=== PATIENT | male | born 1970 | race Caucasian/White ===

== ENCOUNTER 2021-07-05 05:23 | Inpatient (IN) | payer BC ==
[2021-07-05] MEDS ORDERED: SODIUM CHLORIDE 0.9% 1,000 ML IV STA ×2 (06:35→07:15)
[2021-07-05] MEDS ORDERED: AMPICILLIN-SULBACTAM 3 GM in SODIUM CHLORIDE 0.9% 100 ML IVPB STA (06:44)
--- NOTE | 2021-07-05 06:47 | ED ---
General Adult HPI - General Chief complaint: Skin/Abscess/Foreign Body Stated complaint: Cyst on groin, wants to check blood sugar Time Seen by Provider: 07/05/21 06:08 Source: patient, RN notes reviewed Mode of arrival: ambulatory Limitations: no limitations - History of Present Illness Initial comments: 51-year-old male presents to the emergency room for a chief complaint of groin pain. Patient states between his groin and buttock he is having pain and swelling. States he has been ongoing for the past 2 days now but seems to be getting worse instead of better. He has not had fevers. Patient is unsure of his past medical history given he has not had blood work done in years. Denies history of being a diabetic. Denies anything similar happening in the past.Patient has no other complaints at this time including shortness of breath, chest pain, abdominal pain, nausea or vomiting, headache, or visual changes. - Related Data Allergies Allergy/AdvReac Type Severity Reaction Status Date / Time No Known Allergies Allergy Verified 07/05/21 05:27 Review of Systems ROS Statement: Those systems with pertinent positive or pertinent negative responses have been documented in the HPI. ROS Other: All systems not noted in ROS Statement are negative. Past Medical History Past Medical History: No Reported History History of Any Multi-Drug Resistant Organisms: None Reported Past Surgical History: Orthopedic Surgery Additional Past Surgical History / Comment(s): left elbow Past Psychological History: No Psychological Hx Reported Smoking Status: Never smoker Past Alcohol Use History: Rare Past Drug Use History: None Reported General Exam Limitations: no limitations General appearance: alert, in no apparent distress Head exam: Present: atraumatic Eye exam: Present: normal appearance, PERRL, EOMI. Absent: scleral icterus, conjunctival injection ENT exam: Present: normal exam, mucous membranes moist Neck exam: Present: normal inspection, full ROM. Absent: tenderness Respiratory exam: Present: normal lung sounds bilaterally. Absent: respiratory distress, wheezes Cardiovascular Exam: Present: regular rate, normal rhythm, normal heart sounds GI/Abdominal exam: Present: soft, normal bowel sounds. Absent: distended, tenderness External exam: Present: erythema (erythema and edema to the right buttock/perineum) Course Vital Signs 07/05/21 07/05/21 05:27 08:12 Temperature 97.2 F L 98.0 F Pulse Rate 109 H 99 Respiratory 18 16 Rate Blood Pressure 134/87 129/86 O2 Sat by Pulse 97 96 Oximetry Medical Decision Making - Medical Decision Making vitals are stable. Patient is afebrile. Patient does have some erythema extending from the right perineum to the anterior buttock with some induration and edema. He does show leukocytosis of 21.3 with a left shift. CMP does show hyperglycemia. CRP 31.9. ET pelvis does show inspiratory change in the region of the right groin extending into the medial buttock there is no evidence for drainable collection. No air noted. Chest was discussed with Dr. Henry as patient has an appointment to see him coming up. He does request that my attending Dr. Wills look at the area and talked to Dr. Nieves to make sure he is okay to stay here. Dr. Wills did evaluate patient in at this time appears to be a cellulitis. Discussed with Dr. Nieves lab findings and CAT scan image. Agreeable to consult thing and patient in this hospital. Dr. Galaviz spoke with Dr. Henry who does accept admission. - Lab Data Result diagrams: 07/05/21 06:37 07/05/21 06:37 Lab Results 07/05/21 07/05/21 07/05/21 Range/Units 06:37 06:37 06:37 WBC 21.3 H (3.8-10.6) k/uL RBC 4.87 (4.30-5.90) m/uL Hgb 14.2 (13.0-17.5) gm/dL Hct 44.2 (39.0-53.0) % MCV 90.9 (80.0-100.0) fL MCH 29.2 (25.0-35.0) pg MCHC 32.1 (31.0-37.0) g/dL RDW 12.2 (11.5-15.5) % Plt Count 467 H (150-450) k/uL MPV 8.4 Neutrophils % 84 % Lymphocytes % 8 % Monocytes % 6 % Eosinophils % 1 % Basophils % 1 % Neutrophils # 17.8 H (1.3-7.7) k/uL Lymphocytes # 1.8 (1.0-4.8) k/uL Monocytes # 1.2 H (0-1.0) k/uL Eosinophils # 0.2 (0-0.7) k/uL Basophils # 0.1 (0-0.2) k/uL PT 11.3 (9.0-12.0) sec INR 1.1 (<1.2) APTT 27.1 (22.0-30.0) sec Sodium 130 L (137-145) mmol/L Potassium 4.4 (3.5-5.1) mmol/L Chloride 97 L (98-107) mmol/L Carbon Dioxide 13 L (22-30) mmol/L Anion Gap 20 mmol/L BUN 11 (9-20) mg/dL Creatinine 0.77 (0.66-1.25) mg/dL Est GFR (CKD-EPI)AfAm >90 (>60 ml/min/1.73 sqM) Est GFR (CKD-EPI)NonAf >90 (>60 ml/min/1.73 sqM) Glucose 343 H (74-99) mg/dL Plasma Lactic Acid Charles (0.7-2.0) mmol/L Calcium 9.1 (8.4-10.2) mg/dL Total Bilirubin 1.1 (0.2-1.3) mg/dL AST 22 (17-59) U/L ALT 23 (4-49) U/L Alkaline Phosphatase 103 (38-126) U/L C-Reactive Protein 31.9 H (<1.0) mg/dL Total Protein 7.2 (6.3-8.2) g/dL Albumin 4.3 (3.5-5.0) g/dL 07/05/21 Range/Units 06:37 WBC (3.8-10.6) k/uL RBC (4.30-5.90) m/uL Hgb (13.0-17.5) gm/dL Hct (39.0-53.0) % MCV (80.0-100.0) fL MCH (25.0-35.0) pg MCHC (31.0-37.0) g/dL RDW (11.5-15.5) % Plt Count (150-450) k/uL MPV Neutrophils % % Lymphocytes % % Monocytes % % Eosinophils % % Basophils % % Neutrophils # (1.3-7.7) k/uL Lymphocytes # (1.0-4.8) k/uL Monocytes # (0-1.0) k/uL Eosinophils # (0-0.7) k/uL Basophils # (0-0.2) k/uL PT (9.0-12.0) sec INR (<1.2) APTT (22.0-30.0) sec Sodium (137-145) mmol/L Potassium (3.5-5.1) mmol/L Chloride (98-107) mmol/L Carbon Dioxide (22-30) mmol/L Anion Gap mmol/L BUN (9-20) mg/dL Creatinine (0.66-1.25) mg/dL Est GFR (CKD-EPI)AfAm (>60 ml/min/1.73 sqM) Est GFR (CKD-EPI)NonAf (>60 ml/min/1.73 sqM) Glucose (74-99) mg/dL Plasma Lactic Acid Charles 1.1 (0.7-2.0) mmol/L Calcium (8.4-10.2) mg/dL Total Bilirubin (0.2-1.3) mg/dL AST (17-59) U/L ALT (4-49) U/L Alkaline Phosphatase (38-126) U/L C-Reactive Protein (<1.0) mg/dL Total Protein (6.3-8.2) g/dL Albumin (3.5-5.0) g/dL Disposition Clinical Impression: Leukocytosis, Cellulitis, Elevated C-reactive protein (CRP), Hypoglycemia Disposition: ADMITTED IP TO THIS HOSP Is patient prescribed a controlled substance at d/c from ED?: No Referrals: Irma Henry MD [Primary Care Provider] - 1-2 days Time of Disposition: 09:03
[2021-07-05 07:07] LABS: Basophils # (A) 0.1 k/uL (0-0.2); Basophils % (A) 1 %; Eosinophils # (A) 0.2 k/uL (0-0.7); Eosinophils % (A) 1 %; HCT 44.2 % (39.0-53.0); HGB 14.2 gm/dL (13.0-17.5); Lymphocytes # (A) 1.8 k/uL (1.0-4.8); Lymphocytes % (A) 8 %; MCH 29.2 pg (25.0-35.0); MCHC 32.1 g/dL (31.0-37.0); MCV 90.9 fL (80.0-100.0); Mean Platelet Volume 8.4; Monocytes # (A) 1.2 k/uL (0-1.0); Monocytes % (A) 6 %; Neutrophils # (A) 17.8 k/uL (1.3-7.7); Neutrophils % (A) 84 %; Platelet Count 467 k/uL (150-450); RBC 4.87 m/uL (4.30-5.90); RDW 12.2 % (11.5-15.5); WBC 21.3 k/uL (3.8-10.6)
[2021-07-05 07:15] LABS: INR 1.1 (<1.2); Partial Thromboplastin Time 27.1 sec (22.0-30.0); Prothrombin Time 11.3 sec (9.0-12.0)
[2021-07-05 07:21] LABS: ALT 23 U/L (4-49); AST 22 U/L (17-59); African American GFR (CKD) >90 (>60 ml/min/1.73 sqM); Albumin 4.3 g/dL (3.5-5.0); Alkaline Phosphatase 103 U/L (38-126); Anion Gap 20 mmol/L; Blood Urea Nitrogen 11 mg/dL (9-20); Calcium 9.1 mg/dL (8.4-10.2); Carbon Dioxide 13 mmol/L (22-30); Chloride 97 mmol/L (98-107); Glucose 343 mg/dL (74-99); Non-African American GFR(CKD) >90 (>60 ml/min/1.73 sqM); Potassium 4.4 mmol/L (3.5-5.1); Sodium 130 mmol/L (137-145); Total Bilirubin 1.1 mg/dL (0.2-1.3); Total Protein 7.2 g/dL (6.3-8.2)
[2021-07-05 08:04] LABS: C Reactive Protein 31.9 mg/dL (<1.0)
--- NOTE | 2021-07-05 08:13 | CT ---
EXAMINATION TYPE: CT pelvis w con DATE OF EXAM: 07/05/2021 COMPARISON: None HISTORY: Rt Groin Abscess CT DLP: 1033.6 mGycm Automated exposure control for dose reduction was used. CONTRAST: Performed with IV Contrast, patient injected with 100 mL of Isovue 300. Contrast-enhanced CT of the p millicent was performed. FINDINGS: There is inflammatory change in the region of the right groin extending into the medial buttock. Ther e is no evidence for drainable collection. Several subcentimeter right inguinal lymph nodes are noted . No additional inflammatory changes appreciated. No evidence for pelvic mass or free fluid. Urinary bl adder and prostate gland are unremarkable. Lower poles of the kidneys, visualized portions of the lucio er and spleen are grossly unremarkable. Abdominal aorta is of normal caliber. Mild atheromatous deleon e seen. Mild degenerative change lumbar spine. IMPRESSION: There is inflammatory change in the region of the right groin extending into the medial buttock. Ther e is no evidence for drainable collection.
[2021-07-05] MEDS ORDERED: CLINDAMYCIN 600 MG in DEXTROSE 5% IN WATER 50 ML IVPB STA ×2 (08:29)
[2021-07-05] MEDS ORDERED: VANCOMYCIN IV PER PHARMACY 1 EACH MISC MISCELLANE PRN (08:30)
[2021-07-05] MEDS ORDERED: VANCOMYCIN 1,750 MG in SODIUM CHLORIDE 0.9% 500 ML 500 ML IVPB STA (08:37)
[2021-07-05] MEDS ORDERED: NALOXONE 0.4 MG/ML 1 ML VIAL IV PRN (09:03)
[2021-07-05] MEDS ORDERED: ONDANSETRON 4 MG/2 ML VIAL IVP PRN (09:03)
[2021-07-05 09:28] LABS: Erythrocyte Sedimentation Rate 49 mm/hr (0-15)
[2021-07-05] MEDS: SODIUM CHLORIDE 0.9% 1,000 ML IV SCH ×2 (09:36→16:11)
[2021-07-05 11:35] LABS: Glucose,Whole Blood 251 mg/dL (75-99)
[2021-07-05 12:09] LABS: Appearance,Urine Clear (Clear); Bilirubin,Urine Negative (Negative); Blood,Urine Negative (Negative); Color,Urine Light Yellow; Glucose,Urine (UA) 4+ (Negative); Leukocyte Esterase,Urine Negative (Negative); Nitrite,Urine Negative (Negative); PH, Urine 5.5 (5.0-8.0); Protein,Urine Trace (Negative); Specific Gravity,Urine 1.038 (1.001-1.035); Urobilinogen,Urine <2.0 mg/dL (<2.0)
[2021-07-05] MEDS: INSULIN ASPART (NovoLOG) 100 UNIT/ML VIAL SQ SCH ×3 (12:39→21:17)
[2021-07-05 12:51] LABS: Ketones,Urine 4+ (Negative)
--- NOTE | 2021-07-05 13:29 | P.GSCN ---
History of Present Illness Consult date: 07/05/21 Reason for Consult: Cellulitis right groin History of present illness: This 51-year-old male who developed pain in his right groin last couple days. Patient sees Alexis without evidence of cellulitis extends from his right groin into the medial buttock. His CAT scan shows no evidence of any abscess. The patient states he has no significant pain well sitting in stretcher however when he moves he does feel some discomfort. Past Medical History Past Medical History: No Reported History History of Any Multi-Drug Resistant Organisms: None Reported Past Surgical History: Orthopedic Surgery Additional Past Surgical History / Comment(s): left elbow Past Psychological History: No Psychological Hx Reported Smoking Status: Never smoker Past Alcohol Use History: Rare Past Drug Use History: None Reported Medications and Allergies Home Medications Medication Instructions Recorded Confirmed Type Multivit-Min/Folic/Vit K/Lycop 1 tab PO DAILY 07/05/21 07/05/21 History [Men's Multivitamin Tablet] Allergies Allergy/AdvReac Type Severity Reaction Status Date / Time No Known Allergies Allergy Verified 07/05/21 09:15 Surgical - Exam Vital Signs Temp Pulse Resp BP Pulse Ox 97.2 F L 109 H 18 134/87 97 07/05/21 05:27 07/05/21 05:27 07/05/21 05:27 07/05/21 05:27 07/05/21 05:27 - General well developed, well nourished, no distress - Eyes PERRL - ENT normal pinna - Neck no masses - Respiratory normal expansion - Cardiovascular Rhythm: regular - Abdomen Abdomen: soft, non tender - Integumentary Induration and swelling of the right groin which extends towards the right buttock. There is no evidence of any fluctuant mass suggestive of an abscess. Results - Labs 07/05/21 06:37 07/05/21 06:37 Abnormal Lab Results - Last 24 Hours (Table) 07/05/21 07/05/21 07/05/21 Range/Units 06:37 06:37 08:29 WBC 21.3 H (3.8-10.6) k/uL Plt Count 467 H (150-450) k/uL Neutrophils # 17.8 H (1.3-7.7) k/uL Monocytes # 1.2 H (0-1.0) k/uL ESR 49 H (0-15) mm/hr Sodium 130 L (137-145) mmol/L Chloride 97 L (98-107) mmol/L Carbon Dioxide 13 L (22-30) mmol/L Glucose 343 H (74-99) mg/dL POC Glucose (mg/dL) (75-99) mg/dL C-Reactive Protein 31.9 H (<1.0) mg/dL Ur Specific [place] 1.038 H (1.001-1.035) Urine Protein Trace H (Negative) Urine Glucose (UA) 4+ H (Negative) Urine Ketones 4+ H (Negative) 07/05/21 Range/Units 11:33 WBC (3.8-10.6) k/uL Plt Count (150-450) k/uL Neutrophils # (1.3-7.7) k/uL Monocytes # (0-1.0) k/uL ESR (0-15) mm/hr Sodium (137-145) mmol/L Chloride (98-107) mmol/L Carbon Dioxide (22-30) mmol/L Glucose (74-99) mg/dL POC Glucose (mg/dL) 251 H (75-99) mg/dL C-Reactive Protein (<1.0) mg/dL Ur Specific [place] (1.001-1.035) Urine Protein (Negative) Urine Glucose (UA) (Negative) Urine Ketones (Negative) Diabetes panel 07/05/21 Range/Units 06:37 Sodium 130 L (137-145) mmol/L Potassium 4.4 (3.5-5.1) mmol/L Chloride 97 L (98-107) mmol/L Carbon Dioxide 13 L (22-30) mmol/L BUN 11 (9-20) mg/dL Creatinine 0.77 (0.66-1.25) mg/dL Glucose 343 H (74-99) mg/dL Calcium 9.1 (8.4-10.2) mg/dL AST 22 (17-59) U/L ALT 23 (4-49) U/L Alkaline Phosphatase 103 (38-126) U/L Total Protein 7.2 (6.3-8.2) g/dL Albumin 4.3 (3.5-5.0) g/dL Calcium panel 07/05/21 Range/Units 06:37 Calcium 9.1 (8.4-10.2) mg/dL Albumin 4.3 (3.5-5.0) g/dL Pituitary panel 07/05/21 Range/Units 06:37 Sodium 130 L (137-145) mmol/L Potassium 4.4 (3.5-5.1) mmol/L Chloride 97 L (98-107) mmol/L Carbon Dioxide 13 L (22-30) mmol/L BUN 11 (9-20) mg/dL Creatinine 0.77 (0.66-1.25) mg/dL Glucose 343 H (74-99) mg/dL Calcium 9.1 (8.4-10.2) mg/dL Adrenal panel 07/05/21 Range/Units 06:37 Sodium 130 L (137-145) mmol/L Potassium 4.4 (3.5-5.1) mmol/L Chloride 97 L (98-107) mmol/L Carbon Dioxide 13 L (22-30) mmol/L BUN 11 (9-20) mg/dL Creatinine 0.77 (0.66-1.25) mg/dL Glucose 343 H (74-99) mg/dL Calcium 9.1 (8.4-10.2) mg/dL Total Bilirubin 1.1 (0.2-1.3) mg/dL AST 22 (17-59) U/L ALT 23 (4-49) U/L Alkaline Phosphatase 103 (38-126) U/L Total Protein 7.2 (6.3-8.2) g/dL Albumin 4.3 (3.5-5.0) g/dL Assessment and Plan Assessment: Right groin synovitis. Patient continue to receive IV antibiotics. We will follow with you.
[2021-07-05] MEDS ORDERED: PIPERACILLIN-TAZOBACTAM 3.375 GM in SODIUM CHLORIDE 0.9% 100 ML IVPB SCH (16:00)
[2021-07-05] MEDS: HEPARIN SODIUM,PORCINE/PF 5,000 UNIT/0.5 ML SYRINGE SQ SCH ×2 (16:10→23:43)
[2021-07-05 17:02] LABS: Glucose,Whole Blood 267 mg/dL (75-99)
[2021-07-05] MEDS: VANCOMYCIN 1,750 MG in SODIUM CHLORIDE 0.9% 500 ML 500 ML IVPB SCH (17:52)
[2021-07-05 20:48] LABS: Glucose,Whole Blood 346 mg/dL (75-99)
[2021-07-05] MEDS: ACETAMINOPHEN TAB 325 MG TAB PO PRN (21:58)
--- NOTE | 2021-07-05 23:11 | P.HPIM ---
History of Present Illness H&P Date: 07/05/21 Past Medical History Past Medical History: No Reported History History of Any Multi-Drug Resistant Organisms: None Reported Past Surgical History: Orthopedic Surgery Additional Past Surgical History / Comment(s): left elbow Past Psychological History: No Psychological Hx Reported Smoking Status: Never smoker Past Alcohol Use History: Rare Past Drug Use History: None Reported - Past Family History Mother Family Medical History: Diabetes Mellitus Additional Family Medical History / Comment(s): Fatty tissue Father Additional Family Medical History / Comment(s): hypotension Medications and Allergies Home Medications Medication Instructions Recorded Confirmed Type Multivit-Min/Folic/Vit K/Lycop 1 tab PO DAILY 07/05/21 07/05/21 History [Men's Multivitamin Tablet] Allergies Allergy/AdvReac Type Severity Reaction Status Date / Time No Known Allergies Allergy Verified 07/05/21 09:15 Physical Exam Vitals: Vital Signs Temp Pulse Resp BP Pulse Ox 07/05/21 08:12 98.0 F 99 16 129/86 96 07/05/21 05:27 97.2 F L 109 H 18 134/87 97 Intake and Output 07/04/21 07/05/21 07/05/21 22:59 06:59 14:59 Other: Weight 113.398 kg Results CBC & Chem 7: 07/06/21 06:54 07/06/21 06:44 Labs: Abnormal Lab Results - Last 24 Hours (Table) 07/05/21 07/05/21 07/05/21 Range/Units 06:37 06:37 11:33 WBC 21.3 H (3.8-10.6) k/uL Plt Count 467 H (150-450) k/uL Neutrophils # 17.8 H (1.3-7.7) k/uL Monocytes # 1.2 H (0-1.0) k/uL ESR 49 H (0-15) mm/hr Sodium 130 L (137-145) mmol/L Chloride 97 L (98-107) mmol/L Carbon Dioxide 13 L (22-30) mmol/L Glucose 343 H (74-99) mg/dL POC Glucose (mg/dL) 251 H (75-99) mg/dL C-Reactive Protein 31.9 H (<1.0) mg/dL Assessment and Plan Assessment: Right groin abscess and cellulitis. No drainable abscess as per CT. Sepsis secondary to above Newly diagnosed diabetes type 2 A1c 13.5 DVT prophylaxis Plan: Patient will be continued on antibiotics tomorrow Unasyn and vancomycin. Continue with IV hydration and follow-up culture reports. General surgery is following for possible I&D.
[2021-07-05] MEDS: AMPICILLIN-SULBACTAM 3 GM in SODIUM CHLORIDE 0.9% 100 ML IVPB SCH (23:43)
[2021-07-05] MEDS: INSULIN DETEMIR (LEVEMIR) 100 UNIT/ML SYR SQ SCH (23:43)
[2021-07-06] MEDS: VANCOMYCIN 1,750 MG in SODIUM CHLORIDE 0.9% 500 ML 500 ML IVPB SCH ×3 (01:20→18:24)
[2021-07-06] MEDS: SODIUM CHLORIDE 0.9% 1,000 ML IV SCH ×3 (02:08→21:39)
[2021-07-06] MEDS: AMPICILLIN-SULBACTAM 3 GM in SODIUM CHLORIDE 0.9% 100 ML IVPB SCH ×4 (05:26→23:41)
[2021-07-06 07:56] LABS: Glucose,Whole Blood 202 mg/dL (75-99)
[2021-07-06 08:46] LABS: Basophils # (A) 0.08 X 10*3/uL (0.00-0.10); Basophils % (A) 0.5 %; Eosinophils % (A) 1.3 %; HCT 35.6 % (39.6-50.0); HGB 11.9 g/dL (13.0-17.0); Lymphocytes # (A) 1.84 X 10*3/uL (0.90-5.00); Lymphocytes % (A) 11.7 %; MCH 29.3 pg (27.0-32.0); MCHC 33.4 g/dL (32.0-37.0); MCV 87.7 fL (80.0-97.0); Mean Platelet Volume 10.9 fL (9.5-12.2); Monocytes # (A) 1.41 X 10*3/uL (0.20-1.00); Neutrophils # (A) 12.04 X 10*3/uL (1.80-7.70); Neutrophils % (A) 76.6 %; Platelet Count 451 X 10*3/uL (140-440); RBC 4.06 X 10*6/uL (4.40-5.60); RDW 12.2 % (11.5-14.5); WBC 15.71 X 10*3/uL (4.50-10.00)
[2021-07-06] MEDS: INSULIN ASPART (NovoLOG) 100 UNIT/ML VIAL SQ SCH ×4 (08:48→21:36)
[2021-07-06] MEDS: HEPARIN SODIUM,PORCINE/PF 5,000 UNIT/0.5 ML SYRINGE SQ SCH ×3 (08:49→23:42)
[2021-07-06] MEDS: ACETAMINOPHEN TAB 325 MG TAB PO PRN ×2 (08:57→18:31)
[2021-07-06 09:10] LABS: African American GFR (CKD) 129.6 (60.0-200.0); Anion Gap 12.3 mmol/L (10.00-18.00); BUN/Creat Ratio 11.47 Ratio (12.00-20.00); Blood Urea Nitrogen 7.6 mg/dL (9.0-27.0); Calcium 8.3 mg/dL (8.7-10.3); Carbon Dioxide 17.6 mmol/L (20.0-27.5); Non-African American GFR(CKD) 111.8 (60.0-200.0); Potassium 4.2 mmol/L (3.5-5.5)
[2021-07-06 12:38] LABS: Glucose,Whole Blood 227 mg/dL (75-99)
[2021-07-06 17:36] LABS: Glucose,Whole Blood 232 mg/dL (75-99)
[2021-07-06 21:12] LABS: Glucose,Whole Blood 260 mg/dL (75-99)
[2021-07-06] MEDS: INSULIN DETEMIR (LEVEMIR) 100 UNIT/ML SYR SQ SCH (21:36)
--- NOTE | 2021-07-06 22:58 | PN ---
PROGRESS NOTE DATE OF SERVICE: 07/06/2021 REASON FOR FOLLOWUP: Right groin abscess and cellulitis. INTERVAL HISTORY: The patient is afebrile. The patient is still complaining of pain to the right groin area. Minimal improved with pain medication. No chest pain, shortness of breath or cough. No abdominal pain or diarrhea. PHYSICAL EXAMINATION: Blood pressure 142/84 with pulse of 96, temperature 98.5. He is 95% on room air. General description is is a middle-aged male lying in bed in no distress. Respiratory system: Unlabored breathing, clear to auscultation anteriorly. Heart S1, S2. Regular rate and rhythm. Abdomen soft, no tenderness. Right groin did have swelling and redness and tenderness to touch. No drainage. DIAGNOSTIC IMPRESSION AND PLAN: Patient with a right groin abscess and cellulitis. No evidence of any drainable abscess on the CT. Patient is covered with Unasyn and vancomycin; to continue with serial . If the area becomes fluctuant, he may benefit from drainage. Monitor his clinical course closely. MMODL / IJN: [id number] /
[2021-07-06] MEDS: MORPHINE SULFATE 4 MG/ML SYRINGE IV PRN (23:42)
--- NOTE | 2021-07-07 00:50 | P.PN ---
Subjective Progress Note Date: 07/06/21 07/06/2021 Patient is currently resting in the bed. Awake alert oriented x3. Patient did have involvement. Still complains of discomfort in the rectal region. Otherwise patient has been afebrile. No nausea vomiting abdominal pain or diarrhea. A1c level is 13.5. Patient was started on Levemir and continue with insulin sliding scale. Patient is a new diabetic. Laboratory showed WBC 14.7 hemoglobin 11.9 and platelets 451. General surgery had ID is on board. Patient is being current on antibiotics in the form of Unasyn. REVIEW OF SYSTEMS CONSTITUTIONAL: Denies fever or chills. CARDIOVASCULAR: Denies chest pain, shortness of breath, orthopnea, PND or palpitations. RESPIRATORY: Denies cough. GASTROINTESTINAL: Denies abdominal pain, diarrhea, constipation, nausea or vomiting. MUSCULOSKELETAL: Denies myalgias. NEUROLOGIC: Denies numbness, tingling or weakness. ENDOCRINE: Denies fatigue, weight change, polydipsia or polyurina. GENITOURINARY: Denies burning, hematuria or urgency with micturation. HEMATOLOGIC: Denies history of anemia or bleeding. Objective - Vital Signs Vital signs: Vital Signs Temp 98.5 F 07/06/21 15:00 Pulse 96 07/06/21 15:00 Resp 16 07/06/21 15:00 BP 142/84 07/06/21 15:00 Pulse Ox 95 07/06/21 15:00 Intake & Output 07/06/21 07/06/21 07/07/21 06:59 18:59 06:59 Intake Total 800 718 Balance 800 718 Intake: Oral 800 718 Other: Voiding Method Toilet Toilet # Voids 1 3 - Exam PHYSICAL EXAMINATION: Patient is lying in the bed comfortably, no acute distress, awake alert and oriented.. HEENT: Normocephalic. Neck is supple. Pupils reactive. Nostrils clear. Oral cavity is moist. Neck reveals no JVD, carotid bruits, or thyromegaly. CHEST EXAMINATION: Trachea is central. Symmetrical expansion. Lung beasley clear to auscultation and percussion. CARDIAC: Normal S1, S2 with no gallops. No murmurs ABDOMEN: Soft. Bowel sounds normal. No organomegaly. No abdominal bruits. Extremities: reveal no edema. No clubbing or cyanosis Neurologically awake, alert, oriented x3 with well-coordinated movements. No focal deficits noted Skin: No rash or skin lesions. Psychiatric: Cooperative. Nonsuicidal Musculoskeletal: No joint swelling or deformity. Normal range of motion. - Labs CBC & Chem 7: 07/06/21 06:54 07/07/21 07:27 Labs: Abnormal Lab Results - Last 24 Hours (Table) 07/06/21 07/06/21 07/06/21 Range/Units 06:44 06:44 06:54 WBC 15.71 H (4.50-10.00) X 10*3/uL RBC 4.06 L (4.40-5.60) X 10*6/uL Hgb 11.9 L (13.0-17.0) g/dL Hct 35.6 L (39.6-50.0) % Plt Count 451 H (140-440) X 10*3/uL Immature Gran # 0.14 H (0.00-0.04) X 10*3/uL Neutrophils # 12.04 H (1.80-7.70) X 10*3/uL Monocytes # 1.41 H (0.20-1.00) X 10*3/uL Carbon Dioxide 17.6 L (20.0-27.5) mmol/L BUN 7.6 L (9.0-27.0) mg/dL BUN/Creatinine Ratio 11.47 L (12.00-20.00) Ratio Glucose 227 H (70-110) mg/dL POC Glucose (mg/dL) (75-99) mg/dL Hemoglobin A1c 13.4 H (4.0-6.0) % Calcium 8.3 L (8.7-10.3) mg/dL 07/06/21 07/06/21 07/06/21 Range/Units 07:55 12:36 17:34 WBC (4.50-10.00) X 10*3/uL RBC (4.40-5.60) X 10*6/uL Hgb (13.0-17.0) g/dL Hct (39.6-50.0) % Plt Count (140-440) X 10*3/uL Immature Gran # (0.00-0.04) X 10*3/uL Neutrophils # (1.80-7.70) X 10*3/uL Monocytes # (0.20-1.00) X 10*3/uL Carbon Dioxide (20.0-27.5) mmol/L BUN (9.0-27.0) mg/dL BUN/Creatinine Ratio (12.00-20.00) Ratio Glucose (70-110) mg/dL POC Glucose (mg/dL) 202 H 227 H 232 H (75-99) mg/dL Hemoglobin A1c (4.0-6.0) % Calcium (8.7-10.3) mg/dL 07/06/21 Range/Units 21:10 WBC (4.50-10.00) X 10*3/uL RBC (4.40-5.60) X 10*6/uL Hgb (13.0-17.0) g/dL Hct (39.6-50.0) % Plt Count (140-440) X 10*3/uL Immature Gran # (0.00-0.04) X 10*3/uL Neutrophils # (1.80-7.70) X 10*3/uL Monocytes # (0.20-1.00) X 10*3/uL Carbon Dioxide (20.0-27.5) mmol/L BUN (9.0-27.0) mg/dL BUN/Creatinine Ratio (12.00-20.00) Ratio Glucose (70-110) mg/dL POC Glucose (mg/dL) 260 H (75-99) mg/dL Hemoglobin A1c (4.0-6.0) % Calcium (8.7-10.3) mg/dL Microbiology - Last 24 Hours (Table) 07/05/21 16:33 Gram Stain - Preliminary Groin Wound Culture - Preliminary 07/05/21 07:01 Blood Culture - Preliminary Blood No Growth after 24 hours 07/05/21 06:37 Blood Culture - Preliminary Blood No Growth after 24 hours Assessment and Plan Assessment: Right groin abscess and cellulitis. No drainable abscess as per CT. Sepsis secondary to above Newly diagnosed diabetes type 2 A1c 13.5 DVT prophylaxis Plan: Patient will be continued on antibiotics tomorrow Unasyn and vancomycin. Continue with IV hydration and follow-up culture reports. General surgery is following for possible I&D.
[2021-07-07] MEDS: VANCOMYCIN 1,750 MG in SODIUM CHLORIDE 0.9% 500 ML 500 ML IVPB SCH ×3 (02:07→17:44)
[2021-07-07] MEDS: MORPHINE SULFATE 4 MG/ML SYRINGE IV PRN (03:46)
[2021-07-07] MEDS: AMPICILLIN-SULBACTAM 3 GM in SODIUM CHLORIDE 0.9% 100 ML IVPB SCH ×4 (05:10→21:20)
[2021-07-07] MEDS: SODIUM CHLORIDE 0.9% 1,000 ML IV SCH ×2 (06:20→17:06)
[2021-07-07 07:35] LABS: Glucose,Whole Blood 182 mg/dL (75-99)
[2021-07-07] MEDS ORDERED: VANCOMYCIN TROUGH DUE 1 EACH MISC MISCELLANE ONE (08:00)
[2021-07-07 08:24] LABS: African American GFR (CKD) >90 (>60 ml/min/1.73 sqM); Non-African American GFR(CKD) >90 (>60 ml/min/1.73 sqM)
[2021-07-07] MEDS: HEPARIN SODIUM,PORCINE/PF 5,000 UNIT/0.5 ML SYRINGE SQ SCH ×2 (08:47→17:06)
[2021-07-07] MEDS: INSULIN ASPART (NovoLOG) 100 UNIT/ML VIAL SQ SCH ×4 (08:47→21:34)
--- NOTE | 2021-07-07 11:56 | P.CONS ---
History of Present Illness - Reason for Consult Consult date: 07/05/21 perineal cellulitis Requesting physician: Qasim Silva - Chief Complaint painful lump to right groin x 2 days - History of Present Illness History of present illness : Patient is a 51-year-old male presenting to the ER this morning for evaluation of a painful lump to the right groin area patient mention a symptom has going on for about 2 days it initially started as a small pimple that has gradually increased in size very quickly with an x-ray for 48-hour patient describing the area to be painful pain is mostly sharp to throbbing almost 7-8 out of 10 and radiation with associated swelling redness but no drainage patient presented to hospital on arrival to the ER the patient was afebrile patient did have white count of 21.3 with a left shift creatinine was normal patient did have a CT of the pelvis inflammatory change in the region of the right groin extending into the medial buttock no evidence of any drainable abscess patient was started on vancomycin infectious he was consulted for further management of antibiotic therapy General surgery has seen the patient with no plan for drainage at this point Review of system: CONSTITUTIONAL: Positive for weakness denies fever. EYES: No complaint. ENT: No complaint. RESPIRATORY: No complaint. CARDIOVASCULAR: No complaint. GENITOURINARY: No complaint. GASTROINTESTINAL: No complaint. MUSCULOSKELETAL: No complaint. INTEGUMENTARY: As per history of present illness. PSYCHOLOGIC: No complaint. ENDOCRINE: No complaint. NEUROLOGIC: No complaint. Past medical history : Reviewed, documented below Past surgical history : Reviewed, documented below Social history: Reviewed, documented below Medications: Reviewed, as documented below EXAMINATION: Vital sigans= Reviewed and documented below GENERAL DESCRIPTION: Middle-aged male lying in bed, no distress. No tachypnea or accessory muscle of respiration use. HEENT: Shows Pallor , no scleral icterus. Oral mucous membrane is dry. NECK: Trachea central, no thyromegaly. LUNGS: Unlabored breathing. Clear to auscultation anteriorly. No wheeze or crackle. HEART: S1, S2, regular rate and rhythm. ABDOMEN: Soft, no tenderness , guarding or rigidity Right groin did have a tender swollen lump which is hard no fluctuation or drainage EXTREMITIES: No edema of feet. SKIN: No rash, no masses palpable. NEUROLOGICAL: The patient is awake, alert, oriented x3, mood and affect normal. LABS AND RADIOLOGY: Reviewed results see below Assessment : Patient with right groin infection started as a pimple more likely staphylococcal infection less likely gram-negative infection or other etiology CT did not show any evidence of drainable fluid and the right groin area is hard not fluctuant Plan: 1-vancomycin pharmacy to dose with a target trough of 15 while watching kidney function and Vanco trough closely. 2-Marked area of induration 3-if the area started to drain to drain culture both aerobic and anaerobic We will follow on clinical condition and cultures to further adjust medication if needed Past Medical History Past Medical History: No Reported History History of Any Multi-Drug Resistant Organisms: None Reported Past Surgical History: Orthopedic Surgery Additional Past Surgical History / Comment(s): left elbow Past Psychological History: No Psychological Hx Reported Smoking Status: Never smoker Past Alcohol Use History: Rare Past Drug Use History: None Reported - Past Family History Mother Family Medical History: Diabetes Mellitus Additional Family Medical History / Comment(s): Fatty tissue Father Additional Family Medical History / Comment(s): hypotension Medications and Allergies Home Medications Medication Instructions Recorded Confirmed Type Multivit-Min/Folic/Vit K/Lycop 1 tab PO DAILY 07/05/21 07/05/21 History [Men's Multivitamin Tablet] Allergies Allergy/AdvReac Type Severity Reaction Status Date / Time No Known Allergies Allergy Verified 07/05/21 09:15 Physical Exam Vitals: Vital Signs Temp Pulse Resp BP Pulse Ox 07/05/21 08:12 98.0 F 99 16 129/86 96 07/05/21 05:27 97.2 F L 109 H 18 134/87 97 Intake and Output 07/04/21 07/05/21 07/05/21 22:59 06:59 14:59 Other: Weight 113.398 kg Results CBC & Chem 7: 07/06/21 06:54 07/07/21 07:27 Labs: Abnormal Lab Results - Last 24 Hours (Table) 07/05/21 07/05/21 07/05/21 Range/Units 06:37 06:37 08:29 WBC 21.3 H (3.8-10.6) k/uL Plt Count 467 H (150-450) k/uL Neutrophils # 17.8 H (1.3-7.7) k/uL Monocytes # 1.2 H (0-1.0) k/uL ESR 49 H (0-15) mm/hr Sodium 130 L (137-145) mmol/L Chloride 97 L (98-107) mmol/L Carbon Dioxide 13 L (22-30) mmol/L Glucose 343 H (74-99) mg/dL POC Glucose (mg/dL) (75-99) mg/dL C-Reactive Protein 31.9 H (<1.0) mg/dL Ur Specific [place] 1.038 H (1.001-1.035) Urine Protein Trace H (Negative) Urine Glucose (UA) 4+ H (Negative) Urine Ketones 4+ H (Negative) 07/05/21 Range/Units 11:33 WBC (3.8-10.6) k/uL Plt Count (150-450) k/uL Neutrophils # (1.3-7.7) k/uL Monocytes # (0-1.0) k/uL ESR (0-15) mm/hr Sodium (137-145) mmol/L Chloride (98-107) mmol/L Carbon Dioxide (22-30) mmol/L Glucose (74-99) mg/dL POC Glucose (mg/dL) 251 H (75-99) mg/dL C-Reactive Protein (<1.0) mg/dL Ur Specific [place] (1.001-1.035) Urine Protein (Negative) Urine Glucose (UA) (Negative) Urine Ketones (Negative)
[2021-07-07 12:11] LABS: Glucose,Whole Blood 205 mg/dL (75-99)
--- NOTE | 2021-07-07 12:19 | P.PN ---
Progress Note - Text Progress Note Date: 07/06/21 Patient states that the swelling and pain in his right groin/buttock has improved. He's had some spontaneous drainage. On exam there is decreased cellulitis. There is a small amount of drainage near the buttock. Improved slightly lysed. Patient can receive IV antibiotic.
--- NOTE | 2021-07-07 12:20 | P.PN ---
Progress Note - Text Progress Note Date: 07/07/21 Patient feels better today. He states his pain induration or less. He's had some more drainage. On exam decreased cellulitis. There is some drainage of the buttock. Improving cellulitis. We'll continue IV antibiotics.
[2021-07-07 17:22] LABS: Glucose,Whole Blood 240 mg/dL (75-99)
[2021-07-07] MEDS: INSULIN DETEMIR (LEVEMIR) 100 UNIT/ML SYR SQ SCH (21:21)
[2021-07-07 21:24] LABS: Glucose,Whole Blood 289 mg/dL (75-99)
--- NOTE | 2021-07-07 23:11 | PN ---
PROGRESS NOTE DATE OF SERVICE: REASON FOR FOLLOWUP: Right groin abscess cellulitis. INTERVAL HISTORY: The patient is afebrile. The patient is feeling better. He has been mentioned that the white groin area has slightly burst and there is some drainage. The patient denies any chest pain. No shortness of breath or cough. No abdominal pain. No diarrhea. Still complaining of significant pain to the right groin area. PHYSICAL EXAMINATION: Blood pressure 124/72 with a pulse of 73, temperature 98.3. He is 97% on room air. General description is a middle-aged male lying in bed in no distress. Respiratory system: Unlabored breathing, clear to auscultation anteriorly. Heart S1, S2. Regular rate and rhythm. Abdomen soft, no tenderness. Right groin area with some swelling and redness. It is more fluctuant now. LABS: Creatinine 0.59. DIAGNOSTIC IMPRESSION AND PLAN: Patient with right groin abscess and cellulitis with area of fluctuation and may benefit from surgical drainage. We will discuss with surgery. Continue with Unasyn and vancomycin adjusting antibiotic further based on culture report. Continue supportive care. MMODL / IJN: [id number] /
[2021-07-08] MEDS: MORPHINE SULFATE 4 MG/ML SYRINGE IV PRN ×2 (00:42→21:25)
[2021-07-08] MEDS: HEPARIN SODIUM,PORCINE/PF 5,000 UNIT/0.5 ML SYRINGE SQ SCH ×4 (00:43→21:23)
[2021-07-08] MEDS: SODIUM CHLORIDE 0.9% 1,000 ML IV SCH ×3 (00:43→21:25)
[2021-07-08] MEDS: VANCOMYCIN 1,750 MG in SODIUM CHLORIDE 0.9% 500 ML 500 ML IVPB SCH ×3 (00:43→17:20)
--- NOTE | 2021-07-08 02:48 | P.PN ---
Subjective Progress Note Date: 07/07/21 07/06/2021 Patient is currently resting in the bed. Awake alert oriented x3. Patient did have involvement. Still complains of discomfort in the rectal region. Otherwise patient has been afebrile. No nausea vomiting abdominal pain or diarrhea. A1c level is 13.5. Patient was started on Levemir and continue with insulin sliding scale. Patient is a new diabetic. Laboratory showed WBC 14.7 hemoglobin 11.9 and platelets 451. General surgery had ID is on board. Patient is being current on antibiotics in the form of Unasyn. 07/07/2021 Patient is currently lying in the bed. Awake alert oriented x3. Patient was having purulent drainage from the abscess site. Decreased discomfort today. Patient is being current on antibiotics no cough vancomycin and Unasyn. Fluid culture showed strep recollected. ID and surgery is on board. No surgical intervention planned at this time. Patient has been afeb rile. Average blood sugar is still elevated. Patient will be started on preprandial insulin dose. Continue with Levemir. Patient will need insulin supplies and glucometer upon discharge. REVIEW OF SYSTEMS CONSTITUTIONAL: Denies fever or chills. CARDIOVASCULAR: Denies chest pain, shortness of breath, orthopnea, PND or palpitations. RESPIRATORY: Denies cough. GASTROINTESTINAL: Denies abdominal pain, diarrhea, constipation, nausea or vomiting. MUSCULOSKELETAL: Denies myalgias. NEUROLOGIC: Denies numbness, tingling or weakness. ENDOCRINE: Denies fatigue, weight change, polydipsia or polyurina. GENITOURINARY: Denies burning, hematuria or urgency with micturation. HEMATOLOGIC: Denies history of anemia or bleeding. Objective - Vital Signs Vital signs: Vital Signs Temp 98.3 F 07/07/21 15:00 Pulse 76 07/07/21 15:00 Resp 18 07/07/21 15:00 BP 124/72 07/07/21 15:00 Pulse Ox 97 07/07/21 15:00 Intake & Output 07/06/21 07/07/21 07/07/21 18:59 06:59 18:59 Intake Total 718 418 Balance 718 418 Intake: Oral 718 418 Other: Voiding Method Toilet Toilet # Voids 3 2 3 - Exam PHYSICAL EXAMINATION: Patient is lying in the bed comfortably, no acute distress, awake alert and oriented.. HEENT: Normocephalic. Neck is supple. Pupils reactive. Nostrils clear. Oral cavity is moist. Neck reveals no JVD, carotid bruits, or thyromegaly. CHEST EXAMINATION: Trachea is central. Symmetrical expansion. Lung beasley clear to auscultation and percussion. CARDIAC: Normal S1, S2 with no gallops. No murmurs ABDOMEN: Soft. Bowel sounds normal. No organomegaly. No abdominal bruits. Extremities: reveal no edema. No clubbing or cyanosis Neurologically awake, alert, oriented x3 with well-coordinated movements. No focal deficits noted Skin: No rash or skin lesions. Psychiatric: Cooperative. Nonsuicidal Musculoskeletal: No joint swelling or deformity. Normal range of motion. - Labs CBC & Chem 7: 07/06/21 06:54 07/07/21 07:27 Labs: Abnormal Lab Results - Last 24 Hours (Table) 07/06/21 07/06/21 07/07/21 Range/Units 17:34 21:10 07:27 Creatinine 0.59 L (0.66-1.25) mg/dL POC Glucose (mg/dL) 232 H 260 H (75-99) mg/dL 07/07/21 07/07/21 Range/Units 07:34 12:09 Creatinine (0.66-1.25) mg/dL POC Glucose (mg/dL) 182 H 205 H (75-99) mg/dL Microbiology - Last 24 Hours (Table) 07/05/21 07:01 Blood Culture - Preliminary Blood No Growth after 48 hours 07/05/21 06:37 Blood Culture - Preliminary Blood No Growth after 48 hours 07/05/21 16:33 Gram Stain - Preliminary Groin Wound Culture - Preliminary Assessment and Plan Assessment: Right groin abscess and cellulitis. No drainable abscess as per CT. Sepsis secondary to above Newly diagnosed diabetes type 2 A1c 13.5 DVT prophylaxis Plan: Patient will be continued on antibiotics tomorrow Unasyn and vancomycin. Continue with IV hydration and follow-up culture reports. General surgery is following. no plan for I&D at this time.
[2021-07-08] MEDS: AMPICILLIN-SULBACTAM 3 GM in SODIUM CHLORIDE 0.9% 100 ML IVPB SCH ×4 (05:24→21:23)
[2021-07-08 07:19] LABS: Glucose,Whole Blood 201 mg/dL (75-99)
[2021-07-08] MEDS: INSULIN ASPART (NovoLOG) 100 UNIT/ML VIAL SQ SCH ×7 (08:11→21:24)
[2021-07-08] MEDS ORDERED: HYDROmorphone 1 MG/ML 1 ML SYRINGE IVP STA ×2 (09:22→17:06)
--- NOTE | 2021-07-08 10:29 | P.PN ---
Subjective Progress Note Date: 07/08/21 HISTORY OF PRESENT ILLNESS 07/06/2021 Patient is currently resting in the bed. Awake alert oriented x3. Patient did have involvement. Still complains of discomfort in the rectal region. Otherwise patient has been afebrile. No nausea vomiting abdominal pain or diarrhea. A1c level is 13.5. Patient was started on Levemir and continue with insulin sliding scale. Patient is a new diabetic. Laboratory showed WBC 14.7 hemoglobin 11.9 and platelets 451. General surgery had ID is on board. Patient is being current on antibiotics in the form of Unasyn. 07/07/2021 Patient is currently lying in the bed. Awake alert oriented x3. Patient was having purulent drainage from the abscess site. Decreased disco mfort today. Patient is being current on antibiotics no cough vancomycin and Unasyn. Fluid culture showed strep recollected. ID and surgery is on board. No surgical intervention planned at this time. Patient has been afebrile. Average blood sugar is still elevated. Patient will be started on preprandial insulin dose. Continue with Levemir. Patient will need insulin supplies and glucometer upon discharge. 07/08: This is a 51-year-old male patient presented to the hospital for right groin abscess and cellulitis. A is followed by infectious disease and general surgery. Patient denies history of known diabetes. The patient is currently on vancomycin and Unasyn and followed by Dr. Marie. He continues to have drainage from the abscess although this area is very swollen, erythemic and tender. He states his pain is #6/10. Hemoglobin A1c came back at 13.4. Medications will be changed to Levemir 22 units at bedtime, 5 units of NovoLog with meals and NovoLog scale. Reached out to Gen. surgery regarding I&D which is scheduled for later today. Wound culture is positive for strep agalactia group B. REVIEW OF SYSTEMS Constitutional: No fever, no chills, no night sweats. No weight change. No weakness, fatigue or lethargy. No daytime sleepiness. EENT: No headache. No blurred vision or double vision, no loss of vision. No loss of Hearing, no ringing in the ears, no dizziness. No nasal drainage or congestion. No epistaxis. No sore throat. Lungs: No shortness of breath, cough, no sputum production. No wheezing. Cardiovascular: No chest pain, no lower extremity edema. No palpitations. No paroxysmal nocturnal dyspnea. No orthopnea. No lightheadedness or dizziness. No syncopal episodes. Abdominal: No abdominal pain. No nausea, vomiting. No diarrhea. No const ipation. No bloody or tarry stools. No loss of appetite. Genitourinary: No dysuria, increased frequency, urgency. No urinary retention. Musculoskeletal: No myalgias. No muscle weakness, no gait dysfunction, no frequent falls. No back pain. No neck pain. Integumentary: Noted abscess/wound, no lesions. No rash or pruritus. No unusual bruising. No change in hair or nails. Neurologic: No aphasia. No facial droop. No change in mentation. No head injury. No headache. No paralysis. No paresthesia. Psychiatric: No depression. No anxiety. No mood swings. Endocrine: No abnormal blood sugars. No weight change. No excessive sweating or thirst. No cold intolerance. PHYSICAL EXAMINATION Gen: This is a 51-year-old male. Patient is ambulating in his room and appears to be in no acute distress. No respiratory distress noted. HEENT: Head is atraumatic, normocephalic. Pupils equal, round. Sclerae is anicteric. NECK: Supple. No JVD. No lymphadenopathy. No thyromegaly. LUNGS: Clear to auscultation. No wheezes or rhonchi. No intercostal retractions. HEART: Regular rate and rhythm. No murmur. ABDOMEN: Soft. Bowel sounds are present. No masses. No tenderness. Large absce ss to the right perineal area with active drainage, erythema, tenderness. EXTREMITIES: No pedal edema. No calf tenderness. NEUROLOGICAL: Patient is awake, alert and oriented x3. Cranial nerves 2 through 12 are grossly intact. ASSESSMENT AND PLAN 1. Right perineal abscess and cellulitis. Requested I&D to be done by general surgery. Patient has been seen by Dr. Marie and continued on Unasyn and vancomycin. Continue patient on morphine as needed for pain and Glen's will be added. 2. Diabetes mellitus type 2, new diagnoses, A1c 13.5. Medications change to Levemir 22 units at bedtime, NovoLog 5 units 3 times daily with meals and NovoLog scale. 3. Sepsis secondary to right perineal abscess and cellulitis. 4. GI prophylaxis. Protonix. 5. DVT prophylaxis. Heparin subcu. 6. COVID-19 testing negative. Patient has been hospitalized during a pandemic. DISCHARGE PLAN Home. Impression and plan of care have been directed as dictated by the signing physician. Sophia Hollingsworth nurse practitioner acting as scribe for signing physician. Objective - Vital Signs Vital signs: Vital Signs Temp 97.7 F 07/08/21 07:00 Pulse 80 07/08/21 07:00 Resp 22 07/08/21 07:00 BP 142/78 07/08/21 07:00 Pulse Ox 97 07/08/21 07:00 Intake & Output 07/07/21 07/08/21 07/08/21 18:59 06:59 18:59 Intake Total 536 Balance 536 Intake: Oral 536 Other: Voiding Method Toilet Toilet # Voids 3 3 - Labs CBC & Chem 7: 07/06/21 06:54 07/07/21 07:27 Labs: Abnormal Lab Results - Last 24 Hours (Table) 07/07/21 07/07/21 07/07/21 Range/Units 12:09 17:20 21:23 POC Glucose (mg/dL) 205 H 240 H 289 H (75-99) mg/dL 07/08/21 Range/Units 07:17 POC Glucose (mg/dL) 201 H (75-99) mg/dL Microbiology - Last 24 Hours (Table) 07/05/21 16:33 Gram Stain - Final Groin Wound Culture - Final Strep agalactiae - (group b) 07/05/21 07:01 Blood Culture - Preliminary Blood No Growth after 48 hours 07/05/21 06:37 Blood Culture - Preliminary Blood No Growth after 48 hours
[2021-07-08 11:13] LABS: Basophils # (A) 0.1 k/uL (0-0.2); Basophils % (A) 1 %; Eosinophils # (A) 0.3 k/uL (0-0.7); Eosinophils % (A) 4 %; HCT 35.8 % (39.0-53.0); HGB 12.1 gm/dL (13.0-17.5); Lymphocytes # (A) 1.9 k/uL (1.0-4.8); Lymphocytes % (A) 23 %; MCH 30.2 pg (25.0-35.0); MCHC 33.7 g/dL (31.0-37.0); MCV 89.6 fL (80.0-100.0); Mean Platelet Volume 7.7; Monocytes # (A) 0.5 k/uL (0-1.0); Monocytes % (A) 6 %; Neutrophils % (A) 64 %; Platelet Count 497 k/uL (150-450); RBC 3.99 m/uL (4.30-5.90); RDW 12.3 % (11.5-15.5); WBC 7.9 k/uL (3.8-10.6)
[2021-07-08 11:38] LABS: Glucose,Whole Blood 202 mg/dL (75-99)
[2021-07-08 12:11] LABS: African American GFR (CKD) >90 (>60 ml/min/1.73 sqM); Anion Gap 6 mmol/L; Blood Urea Nitrogen 4 mg/dL (9-20); Calcium 8.2 mg/dL (8.4-10.2); Carbon Dioxide 26 mmol/L (22-30); Chloride 106 mmol/L (98-107); Glucose 233 mg/dL (74-99); Non-African American GFR(CKD) >90 (>60 ml/min/1.73 sqM); Potassium 3.7 mmol/L (3.5-5.1); Sodium 138 mmol/L (137-145)
[2021-07-08 13:31] VITALS: BMI 35.9
--- NOTE | 2021-07-08 15:31 | P.PN ---
Subjective Progress Note Date: 07/08/21 CHIEF COMPLAINT: Right perineal abscess and cellulitis HISTORY OF PRESENT ILLNESS: Patient reports no significant improvement in his right perineal abscess. The area is draining purulent discharge. Afebrile. WBC is normal at 7.9. ID and medical service are requesting I&D. PHYSICAL EXAM: VITAL SIGNS: Reviewed. GENERAL: Well-developed in no acute distress. HEENT: No sclera icterus. Extraocular movements grossly intact. Moist buccal mucosa. Head is atraumatic, normocephalic. ABDOMEN: Soft. Nondistended. Nontender. NEUROLOGIC: Alert and oriented. Cranial nerves II through XII grossly intact. : Right perineal groin area area of induration, erythema, tenderness to palpation, purulent drainage noted. Patient's right inner thigh area of cellulitis and drainage has shown improvement. ASSESSMENT: 1. Right perineal abscess and cellulitis PLAN: -Dr. Nieves is planning for bedside I&D today -Continue antibiotics -Continue supportive care -Continue pain medication as needed Physician Client Insights Consultant note has been reviewed by physician. Signing provider agrees with the documented findings, assessment, and plan of care. Objective - Vital Signs Vital signs: Vital Signs Temp 97.7 F 07/08/21 07:00 Pulse 80 07/08/21 07:00 Resp 22 07/08/21 07:00 BP 142/78 07/08/21 07:00 Pulse Ox 97 07/08/21 07:00 Intake & Output 07/07/21 07/08/21 07/08/21 18:59 06:59 18:59 Intake Total 536 118 Balance 536 118 Intake: Oral 536 118 Other: Voiding Method Toilet Toilet Toilet # Voids 3 3 - Labs CBC & Chem 7: 07/08/21 10:27 07/08/21 10:27 Labs: Abnormal Lab Results - Last 24 Hours (Table) 07/07/21 07/07/21 07/08/21 Range/Units 17:20 21:23 07:17 RBC (4.30-5.90) m/uL Hgb (13.0-17.5) gm/dL Hct (39.0-53.0) % Plt Count (150-450) k/uL BUN (9-20) mg/dL Glucose (74-99) mg/dL POC Glucose (mg/dL) 240 H 289 H 201 H (75-99) mg/dL Calcium (8.4-10.2) mg/dL 07/08/21 07/08/21 07/08/21 Range/Units 10:27 10:27 11:37 RBC 3.99 L (4.30-5.90) m/uL Hgb 12.1 L (13.0-17.5) gm/dL Hct 35.8 L (39.0-53.0) % Plt Count 497 H (150-450) k/uL BUN 4 L (9-20) mg/dL Glucose 233 H (74-99) mg/dL POC Glucose (mg/dL) 202 H (75-99) mg/dL Calcium 8.2 L (8.4-10.2) mg/dL Microbiology - Last 24 Hours (Table) 07/05/21 07:01 Blood Culture - Preliminary Blood No Growth after 72 hours 07/05/21 06:37 Blood Culture - Preliminary Blood No Growth after 72 hours 07/05/21 16:33 Gram Stain - Final Groin Wound Culture - Final Strep agalactiae - (group b)
[2021-07-08 17:24] LABS: Glucose,Whole Blood 220 mg/dL (75-99)
--- NOTE | 2021-07-08 18:32 | P.OP ---
Date of Procedure: 07/08/21 Preoperative Diagnosis: Perineal abscess Postoperative Diagnosis: Perineal abscess Procedure(s) Performed: Incision and drainage of perineal abscess Anesthesia: local Surgeon: Harris Nieves Estimated Blood Loss (ml): 5 Pathology: none sent Condition: stable Disposition: PACU Description of Procedure: The patient's placed on his bed in the lateral position. Hernial abscess was prepped and draped usual sterile fashion. There is less is 1% local Xylocaine. Using 11 blade and incision was made. Approximately 10 mL of purulent fluid was removed. The wound was packed with wet-to-dry Kerlix. Patient top she will well.
[2021-07-08 21:20] LABS: Glucose,Whole Blood 246 mg/dL (75-99)
[2021-07-08] MEDS: INSULIN DETEMIR (LEVEMIR) 100 UNIT/ML SYR SQ SCH (21:24)
--- NOTE | 2021-07-08 23:09 | PN ---
PROGRESS NOTE DATE OF SERVICE: 07/08/2021 REASON FOR FOLLOWUP: Right groin abscess and cellulitis. INTERVAL HISTORY: The patient is afebrile. The patient did have I and D of the perineal abscess. The patient seems to have tolerated the procedure. The patient denies having any chest pain or shortness of breath or cough. No abdominal pain or diarrhea. PHYSICAL EXAMINATION: Blood pressure 147/88 with a pulse of 80, temperature 98.1. He is 95% on room air. General description is a middle-aged male lying in bed in no distress. Respiratory system: Unlabored breathing, clear to auscultation anteriorly. Heart S1, S2. Regular rate and rhythm. Abdomen soft, no tenderness. Right groin area is currently dressed. No obvious drainage on the dressing. LABS: Hemoglobin is 12.8, white count 7.9, creatinine 0.67. DIAGNOSTIC IMPRESSION AND PLAN: Patient with right groin abscess, status post drainage. Cultures will be followed. Continue with Unasyn and vancomycin. Discharge antibiotics on the basis of the culture report. Continue supportive care. MMODL / IJN: [id number] /
[2021-07-09] MEDS: MORPHINE SULFATE 4 MG/ML SYRINGE IV PRN ×2 (01:01→22:52)
[2021-07-09] MEDS: VANCOMYCIN 1,750 MG in SODIUM CHLORIDE 0.9% 500 ML 500 ML IVPB SCH ×3 (01:01→17:09)
[2021-07-09] MEDS: AMPICILLIN-SULBACTAM 3 GM in SODIUM CHLORIDE 0.9% 100 ML IVPB SCH ×4 (05:26→22:51)
[2021-07-09 06:03] LABS: African American GFR (CKD) >90 (>60 ml/min/1.73 sqM); Non-African American GFR(CKD) >90 (>60 ml/min/1.73 sqM)
[2021-07-09] MEDS: HYDROcodone/APAP 7.5-325MG 1 EACH TAB PO PRN ×2 (07:44→20:17)
[2021-07-09] MEDS: HEPARIN SODIUM,PORCINE/PF 5,000 UNIT/0.5 ML SYRINGE SQ SCH ×3 (07:48→22:52)
[2021-07-09] MEDS: SODIUM CHLORIDE 0.9% 1,000 ML IV SCH ×2 (07:53→17:09)
[2021-07-09 08:03] LABS: Glucose,Whole Blood 119 mg/dL (75-99)
[2021-07-09] MEDS: INSULIN ASPART (NovoLOG) 100 UNIT/ML VIAL SQ SCH ×7 (08:06→20:19)
[2021-07-09 08:43] LABS: Basophils # (A) 0.1 k/uL (0-0.2); Basophils % (A) 1 %; Eosinophils # (A) 0.4 k/uL (0-0.7); Eosinophils % (A) 5 %; HCT 35.8 % (39.0-53.0); HGB 11.7 gm/dL (13.0-17.5); Lymphocytes # (A) 2.6 k/uL (1.0-4.8); Lymphocytes % (A) 29 %; MCH 29.8 pg (25.0-35.0); MCHC 32.8 g/dL (31.0-37.0); MCV 90.8 fL (80.0-100.0); Mean Platelet Volume 8.3; Monocytes # (A) 0.5 k/uL (0-1.0); Monocytes % (A) 5 %; Neutrophils # (A) 5.4 k/uL (1.3-7.7); Neutrophils % (A) 59 %; Platelet Count 549 k/uL (150-450); RBC 3.94 m/uL (4.30-5.90); RDW 12.2 % (11.5-15.5); WBC 9.3 k/uL (3.8-10.6)
--- NOTE | 2021-07-09 08:53 | P.PN ---
Subjective Progress Note Date: 07/09/21 HISTORY OF PRESENT ILLNESS 07/06/2021 Patient is currently resting in the bed. Awake alert oriented x3. Patient did have involvement. Still complains of discomfort in the rectal region. Otherwise patient has been afebrile. No nausea vomiting abdominal pain or diarrhea. A1c level is 13.5. Patient was started on Levemir and continue with insulin sliding scale. Patient is a new diabetic. Laboratory showed WBC 14.7 hemoglobin 11.9 and platelets 451. General surgery had ID is on board. Patient is being current on antibiotics in the form of Unasyn. 07/07/2021 Patient is currently lying in the bed. Awake alert oriented x3. Patient was having purulent drainage from the abscess site. Decreased disco mfort today. Patient is being current on antibiotics no cough vancomycin and Unasyn. Fluid culture showed strep recollected. ID and surgery is on board. No surgical intervention planned at this time. Patient has been afebrile. Average blood sugar is still elevated. Patient will be started on preprandial insulin dose. Continue with Levemir. Patient will need insulin supplies and glucometer upon discharge. 07/08: This is a 51-year-old male patient presented to the hospital for right groin abscess and cellulitis. A is followed by infectious disease and general surgery. Patient denies history of known diabetes. The patient is currently on vancomycin and Unasyn and followed by Dr. Marie. He continues to have drainage from the abscess although this area is very swollen, erythemic and tender. He states his pain is #6/10. Hemoglobin A1c came back at 13.4. Medications will be changed to Levemir 22 units at bedtime, 5 units of NovoLog with meals and NovoLog scale. Reached out to Gen. surgery regarding I&D which is scheduled for later today. Wound culture is positive for strep agalactia group B. 07/09: Yesterday, patient underwent bedside I&D of the perineal abscess with removal of 10 ML's of purulent drainage. Patient states that his pain is better and is now more of a discomfort. His appetite is improved. He denies fever or chills. He remains afebrile, heart rate 79, blood pressure 148/87 and pulse ox 94% on room air. Sugar yesterday was still in the 200s but this morning 119. WBC 9.3, hemoglobin 11.7, platelet count 549. Lisinopril will be added and diabetic education will need to be provided prior to discharge. Plan will be for patient to go home on insulin which is new for him. Dietitian consult added as well. REVIEW OF SYSTEMS Constitutional: No fever, no chills, no night sweats. No weight change. No weakness, fatigue or lethargy. No daytime sleepiness. EENT: No headache. No blurred vision or double vision, no loss of vision. No loss of Hearing, no ringing in the ears, no dizziness. No nasal drainage or congestion. No epistaxis. No sore throat. Lungs: No shortness of breath, cough, no sputum production. No wheezing. Cardiovascular: No chest pain, no lower extremity edema. No palpitations. No paroxysmal nocturnal dyspnea. No orthopnea. No lightheadedness or dizziness. No syncopal episodes. Abdominal: No abdominal pain. No nausea, vomiting. No diarrhea. No constipation. No bloody or tarry stools. No loss of appetite. Genitourinary: No dysuria, increased frequency, urgency. No urinary retention. Musculoskeletal: No myalgias. No muscle weakness, no gait dysfunction, no frequent falls. No back pain. No neck pain. Integumentary: Noted abscess/wound, no lesions. No rash or pruritus. Neurologic: No aphasia. No facial droop. No change in mentation. No head injury. No headache. No paralysis. No paresthesia. Psychiatric: No depression. No anxiety. No mood swings. Endocrine: Noted abnormal blood sugars. No weight change. No excessive sweating or thirst. No cold intolerance. PHYSICAL EXAMINATION Gen: This is a 51-year-old male. Patient is resting in bed and appears to be in no acute distress. No respiratory distress noted. HEENT: Head is atraumatic, normocephalic. Pupils equal, round. Sclerae is anicteric. NECK: Supple. No JVD. No lymphadenopathy. No thyromegaly. LUNGS: Clear to auscultation. No wheezes or rhonchi. No intercostal retractions. HEART: Regular rate and rhythm. No murmur. ABDOMEN: Soft. Bowel sounds are present. No masses. No tenderness. Perineal area not assessed. EXTREMITIES: No pedal edema. No calf tenderness. NEUROLOGICAL: Patient is awake, alert and oriented x3. Cranial nerves 2 through 12 are grossly intact. ASSESSMENT AND PLAN 1. Right perineal abscess and cellulitis. S/p I&D by general surgery. Patient has been seen by Dr. Marie and continued on Unasyn and vancomycin. Continue patient on morphine as needed for pain and [place]'s will be added. 2. Diabetes mellitus type 2, new diagnoses, A1c 13.5. Medications change to Levemir 22 units at bedtime, NovoLog 5 units 3 times daily with meals and NovoLog scale. Reticulocyte education, dietitian consult. 3. Sepsis secondary to right perineal abscess and cellulitis. 4. GI prophylaxis. Protonix. 5. DVT prophylaxis. Heparin subcu. 6. COVID-19 testing negative. Patient has been hospitalized during a pandemic. DISCHARGE PLAN Home. Impression and plan of care have been directed as dictated by the signing physician. Sophia Hollingsworth nurse practitioner acting as scribe for signing ph ysician. Objective - Vital Signs Vital signs: Vital Signs Temp 98.5 F 07/09/21 00:56 Pulse 79 07/09/21 00:56 Resp 18 07/09/21 00:56 BP 148/87 07/09/21 00:56 Pulse Ox 94 L 07/09/21 00:56 Intake & Output 07/08/21 07/09/21 07/09/21 18:59 06:59 18:59 Intake Total 236 Balance 236 Weight 113.398 kg Intake: Oral 236 Other: Voiding Method Toilet Toilet # Voids 3 2 - Labs CBC & Chem 7: 07/09/21 05:21 07/09/21 05:21 Labs: Abnormal Lab Results - Last 24 Hours (Table) 07/08/21 07/08/21 07/08/21 Range/Units 10:27 10:27 11:37 RBC 3.99 L (4.30-5.90) m/uL Hgb 12.1 L (13.0-17.5) gm/dL Hct 35.8 L (39.0-53.0) % Plt Count 497 H (150-450) k/uL BUN 4 L (9-20) mg/dL Creatinine (0.66-1.25) mg/dL Glucose 233 H (74-99) mg/dL POC Glucose (mg/dL) 202 H (75-99) mg/dL Calcium 8.2 L (8.4-10.2) mg/dL 07/08/21 07/08/21 07/09/21 Range/Units 17:22 21:19 05:21 RBC (4.30-5.90) m/uL Hgb (13.0-17.5) gm/dL Hct (39.0-53.0) % Plt Count (150-450) k/uL BUN (9-20) mg/dL Creatinine 0.57 L (0.66-1.25) mg/dL Glucose (74-99) mg/dL POC Glucose (mg/dL) 220 H 246 H (75-99) mg/dL Calcium (8.4-10.2) mg/dL 07/09/21 Range/Units 08:02 RBC (4.30-5.90) m/uL Hgb (13.0-17.5) gm/dL Hct (39.0-53.0) % Plt Count (150-450) k/uL BUN (9-20) mg/dL Creatinine (0.66-1.25) mg/dL Glucose (74-99) mg/dL POC Glucose (mg/dL) 119 H (75-99) mg/dL Calcium (8.4-10.2) mg/dL Microbiology - Last 24 Hours (Table) 07/05/21 07:01 Blood Culture - Preliminary Blood No Growth after 72 hours 07/05/21 06:37 Blood Culture - Preliminary Blood No Growth after 72 hours
[2021-07-09 12:15] LABS: Glucose,Whole Blood 120 mg/dL (75-99)
--- NOTE | 2021-07-09 13:14 | P.PN ---
Subjective Progress Note Date: 07/09/21 CHIEF COMPLAINT: Right perineal abscess and cellulitis HISTORY OF PRESENT ILLNESS: Patient is status post bedside incision and drainage of perineal abscess. Patient reports improvement in his pain. Abscess is draining. Afebrile. WBC 9.3 PHYSICAL EXAM: VITAL SIGNS: Reviewed. GENERAL: Well-developed in no acute distress. HEENT: No sclera icterus. Extraocular movements grossly intact. Moist buccal mucosa. Head is atraumatic, normocephalic. ABDOMEN: Soft. Nondistended. Nontender. NEUROLOGIC: Alert and oriented. Cranial nerves II through XII grossly intact. : Right perineal abscess decrease in area of induration. Drainage present ASSESSMENT: 1. Right perineal abscess and cellulitis PLAN: -Consult wound care service -Recommend patient follow-up outpatient at wound care center -Continue local wound care -Continue antibiotics -Continue supportive care -Continue pain medication as needed Physician Phosphatic [employer]il[employer] Supervisor note has been reviewed by physician. Signing provider agrees with the documented findings, assessment, and plan of care. Objective - Vital Signs Vital signs: Vital Signs Temp 97.9 F 07/09/21 07:20 Pulse 75 07/09/21 07:20 Resp 18 07/09/21 07:20 BP 142/82 07/09/21 07:20 Pulse Ox 94 L 07/09/21 07:20 Intake & Output 07/08/21 07/09/21 07/09/21 18:59 06:59 18:59 Intake Total 236 Balance 236 Weight 113.398 kg Intake: Oral 236 Other: Voiding Method Toilet Toilet # Voids 3 2 - Labs CBC & Chem 7: 07/09/21 05:21 07/09/21 05:21 Labs: Abnormal Lab Results - Last 24 Hours (Table) 07/08/21 07/08/21 07/09/21 Range/Units 17:22 21:19 05:21 RBC (4.30-5.90) m/uL Hgb (13.0-17.5) gm/dL Hct (39.0-53.0) % Plt Count (150-450) k/uL Creatinine 0.57 L (0.66-1.25) mg/dL POC Glucose (mg/dL) 220 H 246 H (75-99) mg/dL 07/09/21 07/09/21 07/09/21 Range/Units 05:21 08:02 12:14 RBC 3.94 L (4.30-5.90) m/uL Hgb 11.7 L (13.0-17.5) gm/dL Hct 35.8 L (39.0-53.0) % Plt Count 549 H (150-450) k/uL Creatinine (0.66-1.25) mg/dL POC Glucose (mg/dL) 119 H 120 H (75-99) mg/dL Microbiology - Last 24 Hours (Table) 07/05/21 07:01 Blood Culture - Preliminary Blood No Growth after 96 hours 07/05/21 06:37 Blood Culture - Preliminary Blood No Growth after 96 hours
[2021-07-09 17:46] LABS: Glucose,Whole Blood 138 mg/dL (75-99)
[2021-07-09 19:47] VITALS: RESP 16
[2021-07-09] MEDS: INSULIN DETEMIR (LEVEMIR) 100 UNIT/ML SYR SQ SCH (20:19)
[2021-07-09 20:22] LABS: Glucose,Whole Blood 164 mg/dL (75-99)
--- NOTE | 2021-07-10 00:07 | PN ---
PROGRESS NOTE DATE OF SERVICE: 07/09/2021 REASON FOR FOLLOW UP: Right groin abscess and cellulitis. The patient is afebrile. The patient is status post drainage of the right groin abscess yesterday by the surgeon. Unfortunately no cultures were done. Patient did tolerate the procedure. Overall pain and discomfort to the right breast is currently controlled. No chest pain, shortness of breath or cough. No abdominal pain. No diarrhea. PHYSICAL EXAMINATION: Blood pressure 157/97, pulse of 73, temperature 98.5. He is 96% room air the patient is a middle-aged male lying in bed in no distress. Respiratory system: Unlabored breathing, clear to auscultation anteriorly heart S1, S2. Regular rate and rhythm. Abdomen: Soft, no tenderness. Right groin overall swelling and redness has decreased. No drainage. LABS: White count normalized, superficial culture positive for Streptococcus agalactiae. DIAGNOSTIC IMPRESSION AND PLAN: Patient with right groin abscess and cellulitis status post drainage, culture with Streptococcus agalactiae. Patient is covered with Unasyn. We will transition to oral antibiotic on discharge as apparently the patient has refused outpatient antibiotic therapy. Continue supportive care condition. MMODL / IJN: [id number] /
[2021-07-10] MEDS: AMPICILLIN-SULBACTAM 3 GM in SODIUM CHLORIDE 0.9% 100 ML IVPB SCH (05:30)
[2021-07-10] MEDS: SODIUM CHLORIDE 0.9% 1,000 ML IV SCH (05:31)
[2021-07-10 07:44] LABS: Glucose,Whole Blood 113 mg/dL (75-99)
[2021-07-10] MEDS: INSULIN ASPART (NovoLOG) 100 UNIT/ML VIAL SQ SCH ×4 (07:55→13:56)
--- NOTE | 2021-07-10 08:20 | P.DS ---
Providers Date of admission: 07/08/21 08:48 Expected date of discharge: 07/10/21 Attending physician: Irma Henry Consults: 07/05/21 09:04 Consult Physician Routine Consulting Provider: Harris Nieves Consult Reason/Comments: gluteal/perineal cellulitis Do you want consulting provider notified?: Already Contacted Consult Physician Routine Consulting Provider: Corie Martínez Consult Reason/Comments: gluteal/perineal cellulitis Do you want consulting provider notified?: Yes Primary care physician: Irma Henry Hospital Course: HISTORY OF PRESENT ILLNESS 07/06/2021 Patient is currently resting in the bed. Awake alert oriented x3. Patient did have involvement. Still complains of discomfort in the rectal region. Otherwise patient has been afebrile. No nausea vomiting abdominal pain or diarrhea. A1c level is 13.5. Patient was started on Levemir and continue with insulin sliding scale. Patient is a new diabetic. Laboratory showed WBC 14.7 hemoglobin 11.9 and platelets 451. General surgery had ID is on board. Patient is being current on antibiotics in the form of Unasyn. 07/07/2021 Patient is currently lying in the bed. Awake alert oriented x3. Patient was having purulent drainage from the abscess site. Decreased discomfort today. Patient is being current on antibiotics no cough vancomycin and Unasyn. Fluid culture showed strep recollected. ID and surgery is on board. No surgical intervention planned at this time. Patient has been afebrile. Average blood sugar is still elevated. Patient will be started on preprandial insulin dose. Continue with Levemir. Patient will need insulin supplies and glucometer upon discharge. 07/08: This is a 51-year-old male patient presented to the hospital for right groin abscess and cellulitis. A is followed by infectious disease and general surgery. Patient denies history of known diabetes. The patient is currently on vancomycin and Unasyn and followed by Dr. Martínez. He continues to have drainage from the abscess although this area is very swollen, erythemic and tender. He states his pain is #6/10. Hemoglobin A1c came back at 13.4. Medications will be changed to Levemir 22 units at bedtime, 5 units of NovoLog with meals and NovoLog scale. Reached out to Gen. surgery regarding I&D which is scheduled for later today. Wound culture is positive for strep agalactia group B. 07/09: Yesterday, patient underwent bedside I&D of the perineal abscess with removal of 10 ML's of purulent drainage. Patient states that his pain is better and is now more of a discomfort. His appetite is improved. He denies fever or chills. He remains afebrile, heart rate 79, blood pressure 148/87 and pulse ox 94% on room air. Sugar yesterday was still in the 200s but this morning 119. WBC 9.3, hemoglobin 11.7, platelet count 549. Lisinopril will be added and diabetic education will need to be provided prior to discharge. Plan will be for patient to go home on insulin which is new for him. Dietitian consult added as well. 07/10: Patient has had significant improvement of the perineal abscess, swelling and erythema and cellulitis. Patient states that his pain is much improved. Dr. segovia is following and will make recommendations regarding antibiotics. 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 information manager is following for possible IV antibiotics. A is doing well learning diabetic management. He is able to give himself insulin and check cbg. Patient will be discharged on pens for Levemir and NovoLog scheduled insulin. We'll prepare patient for discharge today and if Dr. Martínez makes recommendations for antibiotics and arrangements can be completed today including insurance authorization, patient will be discharged today in stable condition. Midline ordered and inserted. One dose of Rocephin today. OP abx arranged by case preparer and liner for Rocephin. DISCHARGE DIAGNOSES 1. Right perineal abscess and cellulitis. S/p I&D by general surgery. 2. Diabetes mellitus type 2, new diagnoses, A1c 13.5. 3. Sepsis secondary to right perineal abscess and cellulitis. 4. COVID-19 testing negative. Patient has been hospitalized during a pandemic. DISCHARGE PLAN Home. Greater than 35 minutes was utilized and coordinating patient's discharge. Impression and plan of care have been directed as dictated by the signing physician. Sophia Hollingsworth nurse practitioner acting as scribe for signing physician. Patient Condition at Discharge: Good Plan - Discharge Summary Discharge Rx Participant: Yes New Discharge Prescriptions: New Insulin Detemir [Levemir Flextouch Pen] 22 units SQ HS #3 pen Insulin Aspart [NovoLOG Flexpen] 6 units SQ AC-TID #5 pen lisinopriL [Zestril] 2.5 mg PO DAILY #30 tab [place], Insulin Disposable [Bd Ultra-Fine Pen Needle 4mm 32g] 1 needle SQ DIRECTED #120 each HYDROcodone/APAP 5-325MG [[place] 5-325] 1 tab PO Q6HR PRN 3 Days #12 tab PRN Reason: Pain Continue Multivit-Min/Folic/Vit K/Lycop [Men's Multivitamin Tablet] 1 tab PO DAILY Discharge Medication List Multivit-Min/Folic/Vit K/Lycop [Men's Multivitamin Tablet] 1 tab PO DAILY 07/05/21 [History] HYDROcodone/APAP 5-325MG [[place] 5-325] 1 tab PO Q6HR PRN 3 Days #12 tab 07/10/21 [Rx] Insulin Aspart [NovoLOG Flexpen] 6 units SQ AC-TID #5 pen 07/10/21 [Rx] Insulin Detemir [Levemir Flextouch Pen] 22 units SQ HS #3 pen 07/10/21 [Rx] [place], Insulin Disposable [Bd Ultra-Fine Pen Needle 4mm 32g] 1 needle SQ DIRECTED #120 each 07/10/21 [Rx] lisinopriL [Zestril] 2.5 mg PO DAILY #30 tab 07/10/21 [Rx] Follow up Appointment(s)/Referral(s): Irma Henry MD [Primary Care Provider] - 1-2 days [facility], [NON-STAFF] - [facility],Infusion [NON-STAFF] - Harris Nieves MD [STAFF PHYSICIAN] - 1 Week Activity/Diet/Wound Care/Special Instructions: Dilanhiraileana at [facility] is who will be providing glucometer supplies. They can be contacted at [phone]. Perineal wound: Apply absorptive silver rope apply dry, abd and mesh underwear to hold in place. Change silver Thursday, thursday and thursday. Change outer dressing as needed. May shower on days of dressing changes. At this time I do not think the patient will need outpatient wound care and outpatient clinic. Patient will require assistance and dressing changes due to the location of the ulceration. Discussed with patient to utilize home care unless a family member is able to assist him and dressing changes. follow up with Dr martínez in wound care 1 week call [phone] to make an appointment Discharge Disposition: HOME WITH HOME HEALTH SERVICES
[2021-07-10 08:22] VITALS: BP 153/91; PULSE 72; TEMP 98.1
[2021-07-10 08:28] LABS: African American GFR (CKD) >90 (>60 ml/min/1.73 sqM); Non-African American GFR(CKD) >90 (>60 ml/min/1.73 sqM)
[2021-07-10] MEDS: HEPARIN SODIUM,PORCINE/PF 5,000 UNIT/0.5 ML SYRINGE SQ SCH (09:16)
--- NOTE | 2021-07-10 09:48 | P.PN ---
Subjective Progress Note Date: 07/10/21 HISTORY OF PRESENT ILLNESS 07/06/2021 Patient is currently resting in the bed. Awake alert oriented x3. Patient did have involvement. Still complains of discomfort in the rectal region. Otherwise patient has been afebrile. No nausea vomiting abdominal pain or diarrhea. A1c level is 13.5. Patient was started on Levemir and continue with insulin sliding scale. Patient is a new diabetic. Laboratory showed WBC 14.7 hemoglobin 11.9 and platelets 451. General surgery had ID is on board. Patient is being current on antibiotics in the form of Unasyn. 07/07/2021 Patient is currently lying in the bed. Awake alert oriented x3. Patient was having purulent drainage from the abscess site. Decreased disco mfort today. Patient is being current on antibiotics no cough vancomycin and Unasyn. Fluid culture showed strep recollected. ID and surgery is on board. No surgical intervention planned at this time. Patient has been afebrile. Average blood sugar is still elevated. Patient will be started on preprandial insulin dose. Continue with Levemir. Patient will need insulin supplies and glucometer upon discharge. 07/08: This is a 51-year-old male patient presented to the hospital for right groin abscess and cellulitis. A is followed by infectious disease and general surgery. Patient denies history of known diabetes. The patient is currently on vancomycin and Unasyn and followed by Dr. Marie. He continues to have drainage from the abscess although this area is very swollen, erythemic and tender. He states his pain is #6/10. Hemoglobin A1c came back at 13.4. Medications will be changed to Levemir 22 units at bedtime, 5 units of NovoLog with meals and NovoLog scale. Reached out to Gen. surgery regarding I&D which is scheduled for later today. Wound culture is positive for strep agalactia group B. 07/09: Yesterday, patient underwent bedside I&D of the perineal abscess with removal of 10 ML's of purulent drainage. Patient states that his pain is better and is now more of a discomfort. His appetite is improved. He denies fever or chills. He remains afebrile, heart rate 79, blood pressure 148/87 and pulse ox 94% on room air. Sugar yesterday was still in the 200s but this morning 119. WBC 9.3, hemoglobin 11.7, platelet count 549. Lisinopril will be added and diabetic education will need to be provided prior to discharge. Plan will be for patient to go home on insulin which is new for him. Dietitian consult added as well. 07/10: Patient has had significant improvement of the perineal abscess, swelling and erythema and cellulitis. Patient states that his pain is much improved. Dr. segovia is following and will make recommendations regarding antibiotics. 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 A is doing well learning diabetic management. He is able to give himself insulin and check cbg. Patient will be discharged on pens for Levemir and NovoLog scheduled insulin. We'll prepare patient for discharge today and if Dr. Marie makes recommendations for antibiotics and arrangements can be completed today including insurance authorization, patient will be discharged today in stable condition. REVIEW OF SYSTEMS Constitutional: No fever, no chills, no night sweats. No weight change. No weakness, fatigue or lethargy. No daytime sleepiness. EENT: No headache. No blurred vision or double vision, no loss of vision. No loss of Hearing, no ringing in the ears, no dizziness. No nasal drainage or congestion. No epistaxis. No sore throat. Lungs: No shortness of breath, cough, no sputum production. No wheezing. Cardiovascular: No chest pain, no lower extremity edema. No palpitations. No paroxysmal nocturnal dyspnea. No orthopnea. No lightheadedness or dizziness. No syncopal episodes. Abdominal: No abdominal pain. No nausea, vomiting. No diarrhea. No constipation. No bloody or tarry stools. No loss of appetite. Genitourinary: No dysuria, increased frequency, urgency. No urinary retention. Musculoskeletal: No myalgias. No muscle weakness, no gait dysfunction, no frequent falls. No back pain. No neck pain. Integumentary: Noted abscess/wound-improving, no lesions. No rash or pruritus. Neurologic: No aphasia. No facial droop. No change in mentation. No head injury. No headache. No paralysis. No paresthesia. Psychiatric: No depression. No anxiety. No mood swings. Endocrine: Noted abnormal blood sugars-improving. No weight change. No excessive sweating or thirst. No cold intolerance. PHYSICAL EXAMINATION Gen: This is a 51-year-old male. Patient is resting in bed and appears to be in no acute distress. No respiratory distress noted. HEENT: Head is atraumatic, normocephalic. Pupils equal, round. Sclerae is anicteric. NECK: Supple. No JVD. No lymphadenopathy. No thyromegaly. LUNGS: Clear to auscultation. No wheezes or rhonchi. No intercostal retractions. HEART: Regular rate and rhythm. No murmur. ABDOMEN: Soft. Bowel sounds are present. No masses. No tenderness. Perineal area wound right side is packed. Her is significant improvement in erythema and edema. EXTREMITIES: No pedal edema. No calf tenderness. NEUROLOGICAL: Patient is awake, alert and oriented x3. Cranial nerves 2 through 12 are grossly intact. ASSESSMENT AND PLAN 1. Right perineal abscess and cellulitis. S/p I&D by general surgery. Patient has been seen by Dr. Marie and continued on Unasyn. Continue patient on morphine as needed for pain and [place]'s will be added. 2. Diabetes mellitus type 2, new diagnoses, A1c 13.5. Medications change to Levemir 22 units at bedtime, NovoLog 5 units 3 times daily with meals and NovoLog scale. DM education, dietitian consult. 3. Sepsis secondary to right perineal abscess and cellulitis. 4. GI prophylaxis. Protonix. 5. DVT prophylaxis. Heparin subcu. 6. COVID-19 testing negative. Patient has been hospitalized during a pandemic. DISCHARGE PLAN Home today if arrangements can be completed. Impression and plan of care have been directed as dictated by the signing physician. Sophia Hollingsworth nurse practitioner acting as scribe for signing physician. Objective - Vital Signs Vital signs: Vital Signs Temp 98.1 F 07/10/21 08:00 Pulse 72 07/10/21 08:00 Resp 16 07/10/21 08:00 BP 153/91 07/10/21 08:00 Pulse Ox 97 07/10/21 08:00 Intake & Output 07/09/21 07/10/21 07/10/21 18:59 06:59 18:59 Other: # Voids 3 2 - Labs CBC & Chem 7: 07/09/21 05:21 07/10/21 07:27 Labs: Abnormal Lab Results - Last 24 Hours (Table) 07/09/21 07/09/21 07/09/21 Range/Units 12:14 17:43 20:18 Creatinine (0.66-1.25) mg/dL POC Glucose (mg/dL) 120 H 138 H 164 H (75-99) mg/dL 07/10/21 07/10/21 Range/Units 07:27 07:43 Creatinine 0.58 L (0.66-1.25) mg/dL POC Glucose (mg/dL) 113 H (75-99) mg/dL Microbiology - Last 24 Hours (Table) 07/05/21 07:01 Blood Culture - Preliminary Blood No Growth after 120 hours 07/05/21 06:37 Blood Culture - Preliminary Blood No Growth after 120 hours
--- NOTE | 2021-07-10 10:41 | P.CONS ---
History of Present Illness - Reason for Consult Consult date: 07/10/21 Wound care - History of Present Illness This is a 51-year-old gentleman being seen on for a nonhealing ulceration to the perineal. Patient is status post incision and drainage of a paranasal abscess. Currently the patient's been utilizing gauze to the site. He did have a significant amount of purulent drainage post I&D. Currently patient continues to have purulent drainage from the site. Area is tender to pa lpation. There is minimal granulation seen within the wound bed with positive tunneling. The wound measures approximately 2 x 2 x 2 cm's. The periwound shows erythema. Patient is a former smoker. He is newly diagnosed with diabetes. His hemoglobin A1c was 13.5. Review Of Systems: Constitutional: No fever, no chills, no night sweats. No weight change. No weakness, fatigue or lethargy. No daytime sleepiness. Integumentary:reports wounds, no lesions. No rash or pruritus. No unusual brui sing. No change in hair or nails. Physical exam: General Appearance: Alert, cooperative, no distress, appears stated age. Skin: See HPI all other Skin color, texture, tugor normal, no rashes or lesions. Neurologic: Alert oriented x3 Assessment: 1. Perineal abscess status post I&D 2. 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 Diabetes a skin ulcer Plan: 1.Perineal wound: Apply absorptive silver rope moistened, abd and mesh underwear to hold in place. Change outer dressing as needed. May shower on days of dressing changes. At this time I do not think the patient will need outpatient wound care and outpatient clinic. Patient will require assistance and dressing changes due to the location of the ulceration. Discussed with patient to utilize home care unless a family member is able to assist him and dressing changes. Patient verbalized understanding. Thank you for the consultation any questions contact the wound care center DNP note has been reviewed and discussed with Dr. Moore and the impression and plan of care has been directed as dictated. Past Medical History Past Medical History: No Reported History History of Any Multi-Drug Resistant Organisms: None Reported Past Surgical History: Orthopedic Surgery Additional Past Surgical History / Comment(s): left elbow Past Anesthesia/Blood Transfusion Reactions: No Reported Reaction Past Psychological History: No Psychological Hx Reported Smoking Status: Never smoker Past Alcohol Use History: Rare Past Drug Use History: None Reported - Past Family History Mother Family Medical History: Diabetes Mellitus Additional Family Medical History / Comment(s): Fatty tissue Father Additional Family Medical History / Comment(s): hypotension Medications and Allergies Home Medications Medication Instructions Recorded Confirmed Type Multivit-Min/Folic/Vit K/Lycop 1 tab PO DAILY 07/05/21 07/05/21 History [Men's Multivitamin Tablet] Insulin Aspart [NovoLOG Flexpen] 6 units SQ AC-TID #5 pen 07/10/21 Rx Insulin Detemir [Levemir Flextouch 22 units SQ HS #3 pen 07/10/21 Rx Pen] [place], Insulin Disposable [Bd 1 needle SQ DIRECTED #120 each 07/10/21 Rx Ultra-Fine Pen Needle 4mm 32g] lisinopriL [Zestril] 2.5 mg PO DAILY #30 tab 07/10/21 Rx Allergies Allergy/AdvReac Type Severity Reaction Status Date / Time No Known Allergies Allergy Verified 07/05/21 09:15 Physical Exam Vitals: Vital Signs Temp Pulse Resp BP Pulse Ox 07/10/21 08:00 98.1 F 72 16 153/91 97 07/10/21 01:44 98.0 F 75 16 121/81 94 L 07/09/21 19:17 98.5 F 78 16 157/97 96 07/09/21 15:28 98.5 F 94 17 117/53 93 L Intake and Output 07/09/21 07/10/21 07/10/21 22:59 06:59 14:59 Other: # Voids 3 2 Results CBC & Chem 7: 07/09/21 05:21 07/10/21 07:27 Labs: Abnormal Lab Results - Last 24 Hours (Table) 07/09/21 07/09/21 07/09/21 Range/Units 12:14 17:43 20:18 Creatinine (0.66-1.25) mg/dL POC Glucose (mg/dL) 120 H 138 H 164 H (75-99) mg/dL 07/10/21 07/10/21 Range/Units 07:27 07:43 Creatinine 0.58 L (0.66-1.25) mg/dL POC Glucose (mg/dL) 113 H (75-99) mg/dL Microbiology - Last 24 Hours (Table) 07/05/21 07:01 Blood Culture - Preliminary Blood No Growth after 120 hours 07/05/21 06:37 Blood Culture - Preliminary Blood No Growth after 120 hours Assessment and Plan (1) Perineal abscess Current Visit: Yes Status: Acute Code(s): L02.215 - CUTANEOUS ABSCESS OF PERINEUM SNOMED Code(s): 92669563 (2) Nonhealing skin ulcer with fat layer exposed Current Visit: Yes Status: Acute Code(s): L98.492 - NON-PRS CHRONIC ULCER OF SKIN OF SITES W FAT LAYER EXPOSED SNOMED Code(s): 30034574 (3) Diabetes with skin ulcer Current Visit: Yes Status: Acute Code(s): E11.622 - TYPE 2 DIABETES MELLITUS WITH OTHER SKIN ULCER; L98.499 - NON-PRESSURE CHRONIC ULCER OF SKIN OF SITES W UNSP SEVERITY SNOMED Code(s): 08025540
--- NOTE | 2021-07-10 12:19 | P.PN ---
Subjective Progress Note Date: 07/10/21 CHIEF COMPLAINT: Right perineal abscess and cellulitis HISTORY OF PRESENT ILLNESS: Patient is status post bedside incision and drainage of perineal abscess. Patient reports improvement in his pain. Abscess is draining. Patient seen by wound care service. Patient anticipating discharge later today. Afebrile. WBC 9.3 PHYSICAL EXAM: VITAL SIGNS: Reviewed. GENERAL: Well-developed in no acute distress. HEENT: No sclera icterus. Extraocular movements grossly intact. Moist buccal mucosa. Head is atraumatic, normocephalic. ABDOMEN: Soft. Nondistended. Nontender. NEUROLOGIC: Alert and oriented. Cranial nerves II through XII grossly intact. : Right perineal abscess decrease in area of induration. Drainage present ASSESSMENT: 1. Right perineal abscess and cellulitis PLAN: -Patient can be discharged from surgical service standpoint -Continue local wound care -Continue antibiotics per ID service -Continue supportive care -Continue pain medication as needed Physician Member Service Specialist note has been reviewed by physician. Signing provider agrees with the documented findings, assessment, and plan of care. Objective - Vital Signs Vital signs: Vital Signs Temp 98.1 F 07/10/21 08:00 Pulse 72 07/10/21 08:00 Resp 16 07/10/21 08:00 BP 153/91 07/10/21 08:00 Pulse Ox 97 07/10/21 08:00 Intake & Output 07/09/21 07/10/21 07/10/21 18:59 06:59 18:59 Other: # Voids 3 2 - Labs CBC & Chem 7: 07/09/21 05:21 07/10/21 07:27 Labs: Abnormal Lab Results - Last 24 Hours (Table) 07/09/21 07/09/21 07/10/21 Range/Units 17:43 20:18 07:27 Creatinine 0.58 L (0.66-1.25) mg/dL POC Glucose (mg/dL) 138 H 164 H (75-99) mg/dL 07/10/21 Range/Units 07:43 Creatinine (0.66-1.25) mg/dL POC Glucose (mg/dL) 113 H (75-99) mg/dL Microbiology - Last 24 Hours (Table) 07/05/21 07:01 Blood Culture - Preliminary Blood No Growth after 120 hours 12/31/21 06:37 Blood Culture - Preliminary Blood No Growth after 120 hours
[2021-07-10 12:37] LABS: Glucose,Whole Blood 106 mg/dL (75-99)
--- NOTE | 2021-07-10 12:50 | PN ---
PROGRESS NOTE DATE OF SERVICE: 07/10/2021 REASON FOR FOLLOWUP: Right groin abscess cellulitis secondary to streptococcus agalactiae. INTERVAL HISTORY: The patient is afebrile. The patient is breathing comfortably. The patient overall pain and discomfort to the right groin area has decreased. No chest pain, shortness of breath, cough, no abdominal pain or no diarrhea. PHYSICAL EXAMINATION: Blood pressure 153/91 with a pulse of 72, temperature 98.1. He is 97% on room air. General description is a middle aged male lying in bed in no distress. Respiratory system: Unlabored breathing. Clear to auscultation anteriorly. Heart S1, S2. Regular rate and rhythm. Abdomen soft, no tenderness. Right groin area pain, swelling and redness has decreased. LABS: Creatinine 0.58. DIAGNOSTIC IMPRESSION AND PLAN: Patient with right groin abscess cellulitis with streptococcal agalactiae, in view of infection would benefit from IV Rocephin 2 grams daily for 10 days. Local wound care with dry Aquacel silver dressing, follow up in the Wound Center in week. Continue supportive care. MMODL / IJN: [id number] /
== END 2021-07-10 14:39 | disposition home health service (06) | DRG 872 ==
LOC: EC 05:23 → 6NMEDSUR 09:03 → OBSVTOIN 07-08 08:48
PROVIDERS: ADMIT Internal Medicine; ATTEND Internal Medicine
PROC: 0J9B3ZZ Drainage of Perineum Subcutaneous Tissue and Fascia, Percutaneous Approach (ICD-10-PCS; principal; 2021-07-08)
PROC: 05HD33Z Insertion of Infusion Device into Right Cephalic Vein, Percutaneous Approach (ICD-10-PCS; 2021-07-10 10:00)
DX: A41.9 Sepsis, unspecified organism (principal); L02.214 Cutaneous abscess of groin; L02.215 Cutaneous abscess of perineum; L03.314 Cellulitis of groin; L03.315 Cellulitis of perineum; E11.622 Type 2 diabetes mellitus with other skin ulcer; E11.649 Type 2 diabetes mellitus with hypoglycemia without coma; L98.492 Non-pressure chronic ulcer of skin of other sites with fat layer exposed; M65.9 Synovitis and tenosynovitis, unspecified; Z20.822 Contact with and (suspected) exposure to COVID-19; Z79.4 Long term (current) use of insulin; Z79.899 Other long term (current) drug therapy; Z83.3 Family history of diabetes mellitus; Z87.891 Personal history of nicotine dependence; B95.4 Other streptococcus as the cause of diseases classified elsewhere
CPT/HCPCS: 36410; 36415; 72193; 76937; 80048; 80053; 80202; 81003; 82565; 83036; 83605; 85025; 85610; 85652; 85730; 86140; 87040; 87070; 87205; 87635; 96365; 96375; 99285

== ENCOUNTER 2021-10-04 08:22 | Day surgery (SDC) | payer BC ==
[2021-10-02 11:34] VITALS: BMI 30.1
[~2021-10-04 08:22] MED LIST: LACTATED RINGERS 1,000 ML IV SCH; LIDOCAINE 1% (10MG/ML) FOR IV START INTRADERMA PRN
[2021-10-04 08:56] VITALS: TEMP 97.4
[2021-10-04 08:57] LABS: Glucose,Whole Blood 73 mg/dL (75-99)
[2021-10-04] MEDS ORDERED: PROPOFOL 10 MG/ML 20 ML VIAL IV ONE (09:28)
[2021-10-04] MEDS ORDERED: LIDOCAINE 1% INJ 10MG/ML (20 ML MDV) ONE (09:28)
--- NOTE | 2021-10-04 09:49 | P.PCN ---
Date of Procedure: 10/04/21 Procedure(s) Performed: BRIEF HISTORY: Patient is a 51-year-old pleasant male scheduled for an elective colonoscopy as a part of gaining for colorectal neoplasia. PROCEDURE PERFORMED: Colonoscopy. PREOPERATIVE DIAGNOSIS: Screening for colon cancer. IV sedation per Anesthesia. PROCEDURE: After informed consent was obtained, the patient, was brought into the endoscopy unit. IV sedation was administered by Anesthesia under continuous monitoring. Digital rectal examination was normal. Initially the Olympus CF-160 flexible video colonoscope was then inserted in the rectum, gradually advanced into the cecum without any difficulty. Careful examination was performed as the scope was gradually being withdrawn. Ileocecal valve and the appendiceal orifice were visualized and appeared normal. Prep was good. Mucosa of the cecum, ascending colon, transverse colon, descending colon, sigmoid colon, and rectum appeared normal. Retroflexion was performed in the rectum and no lesions were seen. The patient tolerated the procedure well. IMPRESSION: Normal-appearing colon from rectum to cecum no evidence of colorectal neoplasia . RECOMMENDATIONS: Findings of this examination were discussed with the patient as well as his family. He was advised to have a repeat screening colonoscopy in 10 years..
[2021-10-04 10:25] LABS: Glucose,Whole Blood 64 mg/dL (75-99)
[2021-10-04 10:26] VITALS: BP 101/64; PULSE 58; RESP 16
[2021-10-04 10:42] LABS: Glucose,Whole Blood 58 mg/dL (75-99)
== END 2021-10-04 10:42 | disposition home or self-care (01) ==
LOC: ORWHC2ENDO 08:22
PROVIDERS: ATTEND Internal Medicine Gastroenterology
DX: Z12.11 Encounter for screening for malignant neoplasm of colon (principal); I10 Essential (primary) hypertension; E11.9 Type 2 diabetes mellitus without complications; Z79.899 Other long term (current) drug therapy; Z87.891 Personal history of nicotine dependence; Z79.4 Long term (current) use of insulin
CPT/HCPCS: J2001; J2704; G0121; 45378

== ENCOUNTER → 2022-04-04 | Outpatient (CLI) | payer BC ==
[2022-04-04 11:17] LABS: Appearance,Urine Clear (Clear); Bilirubin,Urine Negative (Negative); Blood,Urine Negative (Negative); Color,Urine Yellow; Glucose,Urine (UA) Negative (Negative); Ketones,Urine Negative (Negative); Leukocyte Esterase,Urine Negative (Negative); Nitrite,Urine Negative (Negative); Protein,Urine Negative (Negative); Specific Gravity,Urine 1.012 (1.001-1.035); Urobilinogen,Urine <2.0 mg/dL (<2.0)
[2022-04-04 16:05] LABS: Basophils # (A) 0.12 X 10*3/uL (0.00-0.10); Basophils % (A) 1.4 %; Eosinophils # (A) 0.33 X 10*3/uL (0.04-0.35); Eosinophils % (A) 3.9 %; HCT 42.4 % (39.6-50.0); HGB 14.1 g/dL (13.0-17.0); Immature Grans, Automated 0.4 %; Lymphocytes # (A) 2.36 X 10*3/uL (0.90-5.00); Lymphocytes % (A) 27.9 %; MCH 29.4 pg (27.0-32.0); MCHC 33.3 g/dL (32.0-37.0); MCV 88.3 fL (80.0-97.0); Mean Platelet Volume 10.1 fL (9.5-12.2); Monocytes # (A) 0.56 X 10*3/uL (0.20-1.00); Monocytes % (A) 6.6 %; NRBC Per 100 WBC 0 /100 WBCS (0.0-0.0); Neutrophils # (A) 5.07 X 10*3/uL (1.80-7.70); Neutrophils % (A) 59.8 %; Platelet Count 432 X 10*3/uL (140-440); RDW 13.2 % (11.5-14.5); WBC 8.47 X 10*3/uL (4.50-10.00)
[2022-04-05 03:02] LABS: Microalbumin Creatinine Ratio <30 mg/g Creat (0-30); Urine Creatinine 93.1 mg/dL (39.0-259.0)
== END | disposition home or self-care (01) ==
LOC: LABWHC1 10:30
PROVIDERS: ATTEND Internal Medicine
DX: I10 Essential (primary) hypertension (principal); E11.622 Type 2 diabetes mellitus with other skin ulcer; L98.499 Non-pressure chronic ulcer of skin of other sites with unspecified severity
CPT/HCPCS: 36415; 81003; 82043; 82570; 82941; 83036; 83519; 84681; 85025